=== PATIENT | female | born 1945 | race Caucasian/White ===

== ENCOUNTER 2016-08-21 09:15 | Emergency (ER) | payer OTHER ==
[~2016-08-21] VITALS: Ht 165.1 cm; Wt 72.0 kg
[~2016-08-21 09:15] MED LIST: NRV/10 PO; VNTHFA/IN INH
[2016-08-21 09:18] VITALS: TEMP 36.5; Ht 165.1 cm; Wt 72.0 kg
[2016-08-21 10:19] LABS: BASO % 0.7 %; BASO ABS # 0.04 K/uL (0-0.2); COMPLETE YES; EOS % 1.6 %; HEMATOCRIT 46.9 % (37-47); IG% 0.3 %; LYMPH % 11.2 %; LYMPH ABS # 0.65 K/uL (1.2-3.4); MEAN CELL VOLUME 98.7 fL (80-100); MEAN CORPUSCULAR HEMOGLOBIN 34.5 pg (25-34); MEAN PLATELET VOLUME 9.2 fL (7.4-10.4); MONO % 10.7 %; NEUT % 75.5 %; PLATELET COUNT 176 K/uL (130-400); RED BLOOD COUNT 4.75 M/uL (4.2-5.4); WHITE BLOOD COUNT 5.79 K/uL (4.8-10.8)
[2016-08-21 10:38] LABS: CALCIUM 8.6 mg/dl (8.5-10.1); CREATININE 0.59 mg/dl (0.60-1.20)
--- NOTE | 2016-08-21 10:46 | DIAGNOSTIC IMAGING REPORT ---
RIGHT KNEE 3 VIEWS HISTORY: right knee pain Right COMPARISON: None. FINDINGS: There is no fracture or dislocation. The bones are osteopenic. Moderate cartilage space narrowing within the medial compartment of the patellofemoral joint and mild cartilage space narrowing within the medial compartment of the femorotibial joint. Suspect faint chondrocalcinosis. Small to moderate knee effusion. Soft tissue thickening at the quadriceps tendon. No radiopaque foreign bodies. IMPRESSION: 1. No fracture or dislocation within the right knee. 2. Small to moderate knee effusion. 3. Chondrocalcinosis and degenerative changes as described above. 4. Soft tissue thickening at the quadriceps tendon. This could be due to a quadriceps tendon injury/tendinopathy. Electronically signed by: Segundo De Luna M.D. 08/21/2016 10:45 AM Dictated Date/Time: 08/21/2016 10:42 AM
[2016-08-21] MEDS ORDERED: OXYC1TAB3 PO (11:27)
[2016-08-21 11:29] VITALS: BP 141/100; PULSE 82; O2SAT 98
--- NOTE | 2016-08-21 16:23 | EMERGENCY ROOM VISIT NOTE ---
History Report prepared by Malissa: Michael Marie Under the Supervision of: Dr. Dao Chau D.O. First contact with patient: 09:23 Chief Complaint: SWELLING TO EXTREMITY Stated Complaint: SWELLING TO EXTREMETIES History of Present Illness The patient is a 71 year old female who presents to the Emergency Room with complaints of worsening joint swelling over the past two months. The patient states that she has been having swelling in her extremities, though it has gotten much worse recently. The patient states that the swelling and pain are in her hands, shoulders, knees, hips, and fingers. The patient additionally states that the right knee is erythematous. She states that she has not seen any rheumatologists, and she has not taken any medications for the pain or swelling. The patient states that she has an appointment with a specialist in October. She states that she has had her hip replaced, ruptured discs, and multiple fractures in the past. The patient states that nothing makes the pain better, and she currently lives alone. Pt denies headache, change in vision, fevers, chest pain, shortness of breath, nausea, vomiting, diarrhea, and pain with urination Source of History: patient Onset: two months ago Position: other (extremities) Quality: other (swelling) Timing: worsening Note: Associated symptoms: Joint pain Review of Systems See HPI for pertinent positives & negatives. A total of 10 systems reviewed and were otherwise negative. Past Medical & Surgical Medical Problems: (1) Hypertension Family History Cancer Diabetes mellitus Social History Smoking Status: Never Smoker Marital Status: single, Housing Status: lives alone Occupation Status: retired Current/Historical Medications Scheduled PRN Oxycodone Immediate Rel Tab (Roxicodone Ir), 5 MG PO Q6H PRN for Pain Allergies Coded Allergies: Ibuprofen (Verified Allergy, Unknown, HIVES (TOLERATES OTHER NSAIDS), ) CAN TAKE ALEVE Physical Exam Vital Signs Date Time Temp Pulse Resp B/P Pulse Ox O2 Delivery O2 Flow Rate FiO2 08/21/16 11:29 82 16 141/100 98 Room Air 08/21/16 09:18 36.5 56 20 152/88 92 Room Air Physical Exam GENERAL: Sitting up in bed no acute distress, non-toxic EYE EXAM: normal conjunctiva OROPHARYNX: no exudate, no erythema, lips, buccal mucosa, and tongue normal and mucous membranes are moist NECK: supple, no nuchal rigidity, no adenopathy, non-tender LUNGS: Clear to auscultation. Normal chest wall mechanics HEART: no murmurs, S1 normal and S2 normal ABDOMEN: abdomen soft, non-tender, normo-active bowel sounds, no masses, no rebound or guarding. BACK: Back is symmetrical on inspection and there is no deformity, no midline tenderness, no CVA tenderness. SKIN: no rashes and no bruising UPPER EXTREMITIES: Minimal pain with range of motion or wrist. Radial pulses are equal 2/4 bilaterally. Gross sensation intact. No weakness, no erythema of the joints or overlying cellulitis. LOWER EXTREMITIES: Full active and passive range of motion. Minimal tenderness in bilateral knees. Right slightly larger than left without erythema. Skin intact. NEURO EXAM: Normal sensorium, cranial nerves II-XII grossly intact, normal speech, no gross weakness of arms, no gross weakness of legs. Gross sensation intact. Medical Decision & Procedures ER Provider Diagnostic Interpretation: Xray results per the radiologist and my interpretation. RIGHT KNEE 3 VIEWS HISTORY: right knee pain Right COMPARISON: None. FINDINGS: There is no fracture or dislocation. The bones are osteopenic. Moderate cartilage space narrowing within the medial compartment of the patellofemoral joint and mild cartilage space narrowing within the medial compartment of the femorotibial joint. Suspect faint chondrocalcinosis. Small to moderate knee effusion. Soft tissue thickening at the quadriceps tendon. No radiopaque foreign bodies. IMPRESSION: 1. No fracture or dislocation within the right knee. 2. Small to moderate knee effusion. 3. Chondrocalcinosis and degenerative changes as described above. 4. Soft tissue thickening at the quadriceps tendon. This could be due to a quadriceps tendon injury/tendinopathy. Electronically signed by: Segundo De Luna M.D. 08/21/2016 10:45 AM Dictated Date/Time: 08/21/2016 10:42 AM Laboratory Results 08/21/16 10:00 Red Blood Count 4.75, Mean Corpuscular Volume 98.7, Mean Corpuscular Hemoglobin 34.5, Mean Corpuscular Hemoglobin Concent 35.0, Mean Platelet Volume 9.2, Neutrophils (%) (Auto) 75.5, Lymphocytes (%) (Auto) 11.2, Monocytes (%) (Auto) 10.7, Eosinophils (%) (Auto) 1.6, Basophils (%) (Auto) 0.7, Neutrophils # (Auto ) 4.37, Lymphocytes # (Auto) 0.65, Monocytes # (Auto) 0.62, Eosinophils # (Auto ) 0.09, Basophils # (Auto) 0.04 08/21/16 10:00 Test 08/21/16 10:00 White Blood Count 5.79 K/uL (4.8-10.8) Red Blood Count 4.75 M/uL (4.2-5.4) Hemoglobin 16.4 g/dL (12.0-16.0) Hematocrit 46.9 % (37-47) Mean Corpuscular Volume 98.7 fL (80-100) Mean Corpuscular Hemoglobin 34.5 pg (25-34) Mean Corpuscular Hemoglobin Concent 35.0 g/dl (32-36) Platelet Count 176 K/uL (130-400) Mean Platelet Volume 9.2 fL (7.4-10.4) Neutrophils (%) (Auto) 75.5 % Lymphocytes (%) (Auto) 11.2 % Monocytes (%) (Auto) 10.7 % Eosinophils (%) (Auto) 1.6 % Basophils (%) (Auto) 0.7 % Neutrophils # (Auto) 4.37 K/uL (1.4-6.5) Lymphocytes # (Auto) 0.65 K/uL (1.2-3.4) Monocytes # (Auto) 0.62 K/uL (0.11-0.59) Eosinophils # (Auto) 0.09 K/uL (0-0.5) Basophils # (Auto) 0.04 K/uL (0-0.2) RDW Standard Deviation 46.5 fL (36.4-46.3) RDW Coefficient of Variation 12.9 % (11.5-14.5) Immature Granulocyte % (Auto) 0.3 % Immature Granulocyte # (Auto) 0.02 K/uL (0.00-0.02) Anion Gap 10.0 mmol/L (3-11) Est Creatinine Clear Calc Drug Dose 84.5 ml/min Estimated GFR () 105.4 Estimated GFR (Non- 90.9 BUN/Creatinine Ratio 18.0 (10-20) Calcium Level 8.6 mg/dl (8.5-10.1) Laboratory results per my review. ED Course ED COURSE: Vital signs were reviewed and showed bradycardia The patients medical record was reviewed The above diagnostic studies were performed and reviewed. ED treatments and interventions as stated above. 0933: The patient was evaluated in room A12. A complete history and physical examination was performed. 1018: I discussed the patient's case with care management. They contacted Dr. Olmos, Rheumatology, and they are trying to move the patient's appointment up. 1135: Upon reevaluation, the patient is resting comfortably.I discussed my findings with the patient and She understands and agrees with the treatment plan. Based on the patients age, coexisting illnesses, exam and lab findings the decision to treat as an outpatient was made. The patient remained stable while under my care. The patient appeared well at the time of discharge. Medical Decision Differential diagnosis: Etiologies such as fracture, dislocation, neurovascular compromise, compartment syndrome, soft tissue injury, as well as others were entertained. Patient is a 71-year-old female who presents to the ER with diffuse arthralgias. This is been present for the past year and worsening over the past several months. She has followed up with her primary care doctor who gave her referral to rheumatology. On my exam there appears to be no infected joints. Labs show an unremarkable CBC and BMP. There is no septic joint. Vitals are stable. Patient was updated bedside. X-rays of her right knee were unremarkable as this was most painful knee. Patient was updated and she was discharged to follow-up with her outside sales inspector. Care management did discuss with her bedside and attempted to move her appointment up but they were not successful. Discussed with Pt concerning signs and symptoms to watch out for. Pt was instructed to follow up with their PCP and discussed with the patient their option to return to the ED at anytime for persistent or worsening symptoms. The appropriate anticipatory guidance and out-patient management, including indications for return to the emergency department, were explained at length to the patient and understood. [place] Drug Monitoring Program Search Results: patient reviewed within database, no issues identified Impression Primary Impression: Arthralgia Scribe Attestation The scribe's documentation has been prepared under my direction and personally reviewed by me in its entirety. I confirm that the note above accurately reflects all work, treatment, procedures, and medical decision making performed by me. Departure Information Dispostion Home / Self-Care Prescriptions Oxycodone Immediate Rel Tab (ROXICODONE IR) 5 Mg Tab 5 MG PO Q6H Y for Pain, #14 TAB Prov: Dao Chau, DO 08/21/16 Referrals No Doctor, Assigned (PCP) Forms HOME CARE DOCUMENTATION FORM, IMPORTANT VISIT INFORMATION, WORK / SCHOOL INSTRUCTIONS Patient Instructions ED Joint Pain, [facility] Additional Instructions Please follow up with your primary care doctor with in the next 24 hours. Any worsening of your symptoms, please return to the ED immediately. This includes fevers greater than 100.4, worsening pain, passing out, redness of the joint, inability to walk, or any other concerning signs or symptoms from your standpoint. You were given medications during this visit that will inhibit your ability to drive, operate machinery and work. Please do NOT drive, operate machinery or work for the next 12hrs. You were also given a prescription for a narcotic/oxy ir. While taking this medication you should also not drive, operate machinery and or work. Problem Qualifiers Primary Impression: Arthralgia Joint pain location: unspecified Qualified Codes: M25.50 - Pain in unspecified joint
== END 2016-08-21 12:00 | disposition home or self-care (01) ==
LOC: C.EDB 09:16 → C.EDA 12:00
DX: M25.50 Pain in unspecified joint (principal); I10 Essential (primary) hypertension; M25.461 Effusion, right knee; M17.11 Unilateral primary osteoarthritis, right knee; M79.9 Soft tissue disorder, unspecified; Z96.649 Presence of unspecified artificial hip joint; Z83.3 Family history of diabetes mellitus

== ENCOUNTER → 2017-08-22 | Outpatient (CLI) | payer OTHER ==
[2017-08-22 17:02] LABS: BLOOD UREA NITROGEN 3 mg/dl (7-18); CALCIUM 8.7 mg/dl (8.5-10.1); CARBON DIOXIDE 24 mmol/L (21-32); CREATININE 0.54 mg/dl (0.60-1.20); GLUCOSE 96 mg/dl (70-99); POTASSIUM 3.6 mmol/L (3.5-5.1); SODIUM 139 mmol/L (136-145)
[2017-08-24 15:30] LABS: ANA SCREEN TC 249X POSITIVE (NEGATIVE)
== END | disposition home or self-care (01) ==
LOC: C.LABPBG 12:25
PROVIDERS: ATTEND Physician Assistant
DX: M25.50 Pain in unspecified joint (principal)

== ENCOUNTER → 2017-09-06 | Outpatient (CLI) | payer OTHER ==
[2017-09-06 17:22] LABS: BASO % 0.5 %; BASO ABS # 0.03 K/uL (0-0.2); EOS % 1.1 %; EOS ABS # 0.06 K/uL (0-0.5); HEMATOCRIT 45.4 % (37-47); HEMOGLOBIN 15.5 g/dL (12.0-16.0); IG# 0.01 K/uL (0.00-0.02); LYMPH % 13.5 %; LYMPH ABS # 0.76 K/uL (1.2-3.4); MEAN CELL VOLUME 103.7 fL (80-100); MEAN CORPUSCULAR HEMOGLOBIN 35.4 pg (25-34); MEAN CORPUSCULAR HGB CONC 34.1 g/dl (32-36); MONO % 11.2 %; MONO ABS # 0.63 K/uL (0.11-0.59); NEUT % 73.5 %; NEUT ABS # 4.13 K/uL (1.4-6.5); PLATELET COUNT 143 K/uL (130-400); RED CELL DISTRIBUTION WIDTH CV 13.9 % (11.5-14.5); RED CELL DISTRIBUTION WIDTH SD 52.9 fL (36.4-46.3); WHITE BLOOD COUNT 5.62 K/uL (4.8-10.8)
[2017-09-06 17:43] LABS: ALBUMIN 2.6 gm/dl (3.4-5.0); ALT/SGPT 25 U/L (12-78); AST/SGOT 82 U/L (15-37); CREATININE 0.64 mg/dl (0.60-1.20)
[2017-09-06 17:45] LABS: ALKALINE PHOSPHATASE 102 U/L (45-117); TOTAL PROTEIN 7.2 gm/dl (6.4-8.2)
== END | disposition home or self-care (01) ==
LOC: C.LABPBG 15:40
PROVIDERS: ATTEND Internal Medicine Rheumatology
DX: M05.749 Rheumatoid arthritis with rheumatoid factor of unspecified hand without organ or systems involvement (principal); M15.9 Polyosteoarthritis, unspecified; R76.8 Other specified abnormal immunological findings in serum

== ENCOUNTER 2020-04-18 10:34 | Inpatient (IN) ==
[2020-04-18 12:42] LABS: Basophils # (auto) 0.02 K/uL (0-0.2); Basophils % (auto) 0.4 %; Eosinophils # (auto) 0.04 K/uL (0-0.5); Eosinophils % (auto) 0.8 %; Hematocrit (blood only) 30.2 % (37-47); Hemoglobin 10.2 g/dL (12.0-16.0); Lymphocytes # (auto) 0.87 K/uL (1.2-3.4); Lymphocytes % (auto) 16.5 %; Mean Corpuscular Hemoglobin 33.3 pg (25-34); Mean Corpuscular Hgb Conc 33.8 g/dL (32-36); Mean Corpuscular Volume 98.7 fL (80-100); Mean Platelet Volume 9.4 fL (7.4-10.4); Monocytes # (auto) 0.54 K/uL (0.11-0.59); Monocytes % (auto) 10.2 %; Neutrophils % (auto) 72.1 %; Platelet Count 155 K/uL (130-400); RDW Standard Deviation 49.6 fL (36.4-46.3); Red Blood Count 3.06 M/uL (4.2-5.4); White Blood Count 5.27 K/uL (4.8-10.8)
--- NOTE | 2020-04-18 12:56 | XRay Report ---
SINGLE VIEW CHEST CLINICAL HISTORY: Change in mental status. Rectal bleeding. FINDINGS: An AP, portable, upright chest radiograph is compared to study dated 01/08/2019. The examina tion is significantly degraded by portable technique and patient rotation. The patient's head obscure s the apices. The cardiomediastinal silhouette is unremarkable. Chronic interstitial thickening is si milar to previous. There is bibasilar scarring/atelectasis. No airspace consolidation or large pleura l effusion is identified. No pneumothorax is seen. The skeletal structures are osteopenic. There are healed left-sided rib fractures. Degenerative change is noted in the shoulders and thoracic spine. Fu la hardware is partially visualized in the upper lumbar spine. IMPRESSION: No active disease in the chest. ACT 112: Negative or not required by law. Electronically signed by: Pablo Pa M.D. 04/18/2020 12:55 PM
[2020-04-18 13:10] LABS: Alanine Aminotransferase 16 U/L (12-78); Albumin Level 2.8 gm/dl (3.4-5.0); Aspartate Aminotransferase 38 U/L (15-37); BUN Creatinine Ratio 25.7 (10-20); Blood Urea Nitrogen 20 mg/dl (7-18); Calcium 8.8 mg/dl (8.5-10.1); Carbon Dioxide 31 mmol/L (21-32); Chloride 109 mmol/L (98-107); Creatinine Clr Calc Pharmacy 49.3 ml/min; Est GFR (African American) 83.7; Est GFR (Non-African American) 72.2; Glucose 110 mg/dl (70-99); Magnesium 1.9 mg/dl (1.8-2.4); Sodium 144 mmol/L (136-145)
[2020-04-18 13:23] LABS: Albumin Globulin Ratio 0.7 (0.9-2); Alkaline Phosphatase 55 U/L (45-117); Total Protein 6.8 gm/dl (6.4-8.2); Troponin I < 0.015 ng/ml (0-0.045)
[2020-04-18 13:29] LABS: Partial Thromboplastin Ratio 2.7; Prothrombin Time > 90.0 Seconds (9.0-12.0)
[2020-04-18 13:31] LABS: INR > 9.7 (0.9-1.1); Partial Thromboplastin Time 75.7 Seconds (21.0-31.0)
[2020-04-18] MEDS ORDERED: IOVERSOL 100ml IV ONE (13:55)
[2020-04-18] MEDS ORDERED: PHYTONADIONE 10 MG in SODIUM CHLORIDE 0.9% 50 ML IV ONE (13:57)
[2020-04-18] MEDS ORDERED: SODIUM CHLORIDE 0.9% 1000ML 1,000 ML IV SCH (14:00)
--- NOTE | 2020-04-18 14:05 | CT Scan Report ---
CT SCAN OF THE BRAIN WITHOUT IV CONTRAST CLINICAL HISTORY: Change in mental status. COMPARISON STUDY: CT of the brain dated 10/07/2019. TECHNIQUE: Unenhanced axial CT scan of the brain is performed from the vertex to the skull base. A do se lowering technique was utilized adhering to the principles of ALARA. The patient was scanned twice due to motion artifact. FINDINGS: Brain parenchyma: There are age-related involutional changes noting moderate subcortical and periven tricular microangiopathic change. There is no hemorrhage, mass effect, or evidence of acute territori al ischemia by CT criteria. Caballero-white matter differentiation is preserved. No extra-axial fluid louise ection is seen. Ventricles, sulci, cisterns: Prominent secondary to involutional change. Intracranial vasculature: There is atherosclerotic calcification of the cavernous carotid arteries. Calvarium: Unremarkable. Sinuses and mastoids: The visualized paranasal sinuses are clear. There are bilateral mastoid effusio ns, right larger than left. Orbits: The bony orbits are grossly intact. There are bilateral ocular lens implants. IMPRESSION: There is no hemorrhage, mass effect, or evidence of acute territorial ischemia by CT esmer roberto. ACT 112: Negative or not required by law. Electronically signed by: Pablo Pa M.D. 04/18/2020 2:04 PM
--- NOTE | 2020-04-18 14:17 | CT Scan Report ---
CT SCAN OF THE ABDOMEN AND PELVIS WITH IV CONTRAST CLINICAL HISTORY: Hematochezia. COMPARISON STUDY: Pelvic CT dated 10/29/2018. TECHNIQUE: Following the IV administration of 94 cc of Optiray 320, CT scan of the abdomen and pelvi s is performed from the lung bases to the proximal femora. Images are reviewed in the axial, sagittal , and coronal planes. IV contrast was administered without complication. A dose lowering technique wa s utilized adhering to the principles of ALARA. The examination is degraded by streak artifact from t he arms, as well as metallic streak artifact from extensive lumbar spinal fusion hardware and bilater al hip arthroplasties. There is also motion artifact. CT DOSE: 1419.61 mGy.cm FINDINGS: Lung bases: The heart is normal in size and without pericardial effusion. A small fat-containing Yari dalek hernia is seen in the right lung base. There is bibasilar scarring/atelectasis. No airspace con solidation or pleural effusion is identified. There are esophageal varices. Liver: The contrast-enhanced liver is normal in size, contour, and attenuation. There is no intrahepa tic biliary ductal dilatation. The hepatic veins and portal veins are patent. Gallbladder: There are numerous calcified gallstones with no CT evidence of acute cholecystitis. Spleen: The spleen is enlarged, measuring 13.6 cm in length. Pancreas: Unremarkable. Adrenal glands: Unremarkable. Kidneys: The contrast enhanced kidneys demonstrate cortical atrophy and are without hydronephrosis. T he kidneys enhance symmetrically. A circumaortic left renal vein is incidentally noted. There is evid ence of a left renal shunt, as the left renal vein and the esophageal varices are contiguous. The spl enic vein is patent. Abdominal vasculature: The abdominal aorta is normal in course and caliber noting mild to moderate at herosclerotic calcification. Bowel: There is moderate colonic diverticulosis without CT evidence of acute diverticulitis. No bowel obstruction is seen. The appendix is not identified. There is extravasation of IV contrast into the lower rectum as seen on image #[id number]. Peritoneum: There is no intraperitoneal free air or abdominal ascites. Lymphadenopathy: None. Pelvic viscera: Evaluation of the pelvis is significantly degraded by streak artifact from bilateral hip arthroplasties. The bladder is grossly unremarkable. The uterus is surgically absent. No adnexal lesion is seen. There is asymmetric atrophy of the right pelvic musculature as compared to left. Skeletal structures: The skeletal structures are heterogeneously osteopenic. There is moderate lumbos acral spondylosis, with postoperative change from L3-L5 spinal fusion. No lytic or blastic lesions ar e seen. Bilateral hip arthroplasties are in place. IMPRESSION: 1. Significantly streak and motion compromised examination. 2. There is evidence of IV contrast extravasation into the lower rectum. Correlation with direct visu alization is recommended. 3. There are large esophageal varices with evidence of a left renal venous shunt. 4. Mild splenomegaly. 5. There is no CT evidence of hepatic cirrhosis. 6. Cholelithiasis without CT evidence of acute cholecystitis. 7. Colonic diverticulosis without CT evidence of acute diverticulitis. 8. Additional findings as above. ACT 112: Negative or not required by law. Electronically signed by: Pablo Pa M.D. 04/18/2020 2:16 PM
[2020-04-18] MEDS ORDERED: PROTHROMBIN COMP CONC- KCENTRA 3,000 UNITS in SYRINGE 0 ML IV SCH (14:27)
[2020-04-18] MEDS ORDERED: OCTREOTIDE ACETATE 500 MCG in 0.9 % SODIUM CHLORIDE 100 ML IV SCH ×2 (14:30→14:45)
[2020-04-18] MEDS ORDERED: OCTREOTIDE BOLUS FROM BAG IV ONE (14:30)
[2020-04-18] MEDS ORDERED: MULTI-VITAMIN INFUSION 10 ML, THIAMINE HCL 100 MG, FOLIC ACID 1 MG in SODIUM CHLORIDE 0... IV ONE (14:41)
[2020-04-18] MEDS ORDERED: PANTOprazole 80 MG in DEXTROSE 5% 100 ML IV ONE (14:45)
[2020-04-18] MEDS ORDERED: OCTREOTIDE ACETATE IV SCH (14:45)
[2020-04-18] MEDS ORDERED: SODIUM CHLORIDE 0.9% IV SCH (14:45)
--- NOTE | 2020-04-18 16:09 | History & Physical Report ---
Date of Service April 18, 2020 Assessment & Plan (1) Acute GI bleeding: Bright red blood with clots suggestive of lower GI bleed for 2 days in setting of supratherpeutic INR Type and screen performed Blood consent signed Transfuse overnight if Hgb < 8 Suspect initial drop a dilutional impact from IV fluids. NPO except sips, chips and meds (2) Rectal bleeding: as above (3) Supratherapeutic INR: Secondary to unchecked warfarin use - unclear of indication of this and HIM request for discharge summary from [place]. Vitamin K 10 mg IV PTINR with AM labs (4) Esophageal varices: No hematemesis. Bleeding has all been lower GI with bright red blood and clots. Continue on IV pantoprazole but can discontinue octreotide and no need for antibiotic prophylaxis. Avoid acutely starting BB in setting of acute GI bleed but likely will need on discharge. Consult GI (5) Ambulatory dysfunction: ?secondary to Wernicke's although suspect low likelihood of this. IV thiamine 200mg TID. (6) History of alcohol use disorder: Given significant acute on chronic decline with short term memory loss, bilateral LE weakness and ambulatory dysfunction will treat as Wernicke's with IV thiamine. Last known alcoholic drink in September. Explains her esophageal varices and likely underlying liver cirrhosis (7) Combative behavior: Monitor for delirium Haldol PRN if at risk to self or others - low dose due to prolonged QT. Will likely need placement. (8) Hepatic encephalopathy: Possible cause of acute decline in mentation Will avoid lactulose in setting of unknown stability of GI bleed as above but s hould be started once stable from a GI bleed point of view. (9) Short-term memory loss: Treatment for Wernicke's and hepatic encephalopathy as above but likely has underlying dementia related to chronic alcohol use. 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 History is taken from her daughter at bedside as patient unable to answer any questions and is not orientated x3 who has only recently become involved in her care over the last month. She reports two days of bright red blood and passing clots in stool. The patient has also had progressive decline with ambulatory dysfunction and combative behaviour since care has been taken over by her daughter at the end of last month. She reports acute on chronic decline since the patient was diagnosed with a "blood clot on the brain" in [facility] back in September. She was seen at [facility] for a headache twice in September but discharged from the ER both times. Her daughter reports she went to [facility] after these visits and subsequently life-flighted to [place] and then [place] for a blood clot on her brain for which she was treated with warfarin. Prior to this the patient had been living by herself in [place], [place] and was a chronic alcoholic. After likely withdrawing during her hospitalizations she was discharged to [facility] for rehabilitation. Given treatment with warfarin I suspect she had a stroke with possible atrial fibrillation although her daughter denies any knowledge of this. After rehabilitation she went to live with her sister in [place] but the patient was combative and they would argue all the time therefore her daughter from [place] picked her up and initially lived with her but quickly came back to [place] to live with her [facility]. Unfortunately she has continued to decline. She is yet to follow up with a PCP in [place] since moving back to at the end of February. She has actually had a PCP appointment this coming week as follow up with a repeat INR. Last INR was at the end of February but known In the ER Hgb 10.2 from prior baseline 14.9 ([address] concerning for esophageal varices but no hematemesis from history. Allergies Allergy/AdvReac Type Severity Reaction Status Date / Time ibuprofen Allergy Intermediate HIVES Verified 04/18/20 11:47 (TOLERATES OTHER NSAIDS) Home Medications Medication Instructions Recorded Confirmed Type escitalopram oxalate 5 mg PO QAM 04/18/20 04/18/20 History ferrous sulfate 27 mg PO QAM 04/18/20 04/18/20 History furosemide 20 mg PO BID PRN 04/18/20 04/18/20 History leflunomide 10 mg PO QAM 04/18/20 04/18/20 History multivitamin 1 tab PO QAM 04/18/20 04/18/20 History potassium chloride [Klor-Con M10] 20 meq PO BID 04/18/20 04/18/20 History warfarin 6 mg PO QAM 04/18/20 04/18/20 History Past Med/Surg History Medical History Generalized osteoarthritis of hand GERD without esophagitis History of alcohol use disorder Hypertension Osteoporosis 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 Vitamin D deficiency Surgical History H/O bilateral hip replacements History of back surgery Status post amputation of toe Status post open reduction and internal fixation (ORIF) of fracture (01/2018) L distal radius and ulna Family History Father Alzheimer disease Mother Diabetes Sister Lung cancer Social History Smoking Status: Unknown if ever smoked Hx Alcohol Use: Yes Preferred Language: Persian Communication Ability: Confusion 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 Beliefs That Will Affect Care: None marital status: / Current Living Situation: Alone current occupational status: retired Other Information That Helps Us Care for You: No (N/A) Feels Safe at Home: Declines to Answer Assistive Devices: None Review of Systems Review of Systems: All systems reviewed & are unremarkable except as noted in HPI & below Physical Exam Constitutional: well developed and + frail appearing; + not well nourished and no acute distress Eyes: + anicteric sclerae; normal pupil size ENMT: Ears: no external ear abnormality Nose: no external nose abnormality Mouth: + dry oral mucous membranes Neck: trachea midline Respiratory: normal respiratory effort, lungs clear to auscultation Cardiovascular: RRR, no murmur, no edema Gastrointestinal (Abdomen): Inspection/Auscultation: abdomen normal to inspection and normal bowel sounds Percussion/Palpation: abdomen soft; abdomen nontender, no guarding and abdomen not rigid Musculoskeletal: no cyanosis or clubbing, extremities motor strength 5/5 Skin: no rashes, warm and dry Neurologic: moves all extremities, awake and + confused; no focal motor deficits (no one sided deficit, limited exam due to patient compliance) Psychiatric: Orientation: alert; + not oriented x 3 Eye Contact: + fair eye contact Genitourinary: no CVA tenderness Results & Data Results & Data ([facility]) Vital Signs (Past 12 Hours) Vital Signs Temp Pulse Resp BP Pulse Ox 04/18/20 15:31 76 14 153/51 H 98 04/18/20 15:00 80 15 132/67 100 04/18/20 14:30 79 14 133/73 99 04/18/20 14:07 90 18 136/84 100 04/18/20 13:30 71 15 133/67 99 04/18/20 13:00 82 14 139/70 97 04/18/20 12:00 77 17 141/75 H 97 04/18/20 11:30 83 17 144/74 H 98 04/18/20 11:11 79 14 97 04/18/20 11:04 85 16 125/68 97 04/18/20 10:50 36.8 C 79 16 150/[address] SCAN OF THE BRAIN WITHOUT IV CONTRAST IMPRESSION: There is no hemorrhage, mass effect, or evidence of acute territorial ischemia by CT criteria. SINGLE VIEW CHEST IMPRESSION: No active disease in the chest. CT SCAN OF THE ABDOMEN AND PELVIS WITH IV CONTRAST IMPRESSION: 1. Significantly streak and motion compromised examination. 2. There is evidence of IV contrast extravasation into the lower rectum. Correlation with direct visualization is recommended. 3. There are large esophageal varices with evidence of a left renal venous shunt. 4. Mild splenomegaly. 5. There is no CT evidence of hepatic cirrhosis. 6. Cholelithiasis without CT evidence of acute cholecystitis. 7. Colonic diverticulosis without CT evidence of acute diverticulitis. 8. Additional findings as above. Medications Administered ER medications given: Vitamin K 10 g IV Octreotide IV bolus and drip Pantoprazole IV bolus and drip ECG Indication: other Rate (beats per minute): 83 Rhythm: normal sinus Findings: + prolonged QT (521 ms); no acute ischemic change Comparison ECG Date: from (August 28, 2014) Change: the following changes noted (QT is prolonged) Code Status & VTE Plan Code Status DNR/DNI VTE Prophylaxis Plan VTE Prophylaxis will be ordered: No Reason for no VTE drug order: Contraindicated and Treatment not indicated PG Care Time/CCT Total # of Minutes Spent Total Time Spent with Patient: Total time spent is greater than 50% in coordination of care (as documented) at patient's floor/unit and/or counseling patient: Coding Level of Care Code 17032 Initial Inpt Care Lvl 3 Diagnoses Acute GI bleeding K92.2 Rectal bleeding K62.5 Supratherapeutic INR R79.1 Esophageal varices I85.00 Ambulatory dysfunction R26.2 History of alcohol use disorder Z87.898 Combative behavior R46.89 Hepatic encephalopathy K72.90 Short-term memory loss R41.3 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
[2020-04-18] MEDS: PANTOprazole 40 MG in DEXTROSE 5% 100 ML IV SCH ×2 (17:25→21:30)
[2020-04-18] MEDS ORDERED: THIAMINE HCL 500 MG in SODIUM CHLORIDE 0.9% 50 ML IV STA (18:02)
[2020-04-18 18:12] LABS: Hemoglobin 8.8 g/dL (12.0-16.0)
--- NOTE | 2020-04-18 18:24 | Electrocardiogram Report ---
Test Reason : Blood Pressure : / mmHG Vent. Rate : 083 BPM Atrial Rate : 083 BPM P-R Int : 170 ms QRS Dur : 078 ms QT Int : 444 ms P-R-T Axes : 000 -17 031 degrees QTc Int : 521 ms Poor data quality, interpretation may be adversely affected Normal sinus rhythm Low voltage QRS Borderline ECG When compared with ECG of 28-AUG-2014 21:06, QT has lengthened Confirmed by Dontae Schilling ([id number]) on 04/18/2020 6:23:59 PM Referred By: REFERRED SELF Confirmed By:Dontae Schilling
--- NOTE | 2020-04-18 19:55 | Emergency Department Note ---
History of Present Illness General Chief complaint: Rectal Bleed Stated complaint: SEVERE STOMACH,HEADACHE,SEVERE RECTAL BLEEDING Time Seen by Provider: 04/18/20 10:57 History of Present Illness Maximum Pain Intensity: 3 This is a 75-year-old female that presents to the emergency department via private vehicle accompanied by daughter with complaints of "severe stomach pain, headache, severe rectal bleeding". The patient is here with her daughter. The patient is nonverbal at this time. The daughter notes that the patient has had a steady decline in physical and mental status since this past September. She notes that she was able to identify people about a week ago but unfortunately now as of today does not know even her immediate family. The daughter at bedside notes the patient has been complaining of a headache as well as abdominal pain. The daughter brings the mother here now over concern of blood red blood per rectum. The patient has been passing large amounts of blood from the rectum per daughter. The daughter notes that the patient was discharged from [facility] this past December and then went to live with her sister in [place] but as of 1 month ago was sent back home as things were not going well [place]. Patient has been now living with granddaughter here in [facility]. The daughter of the patient also notes that she has had a dry cough, and also seems to be hallucinating noting that she is seeing bugs and spiders. There has been no reported vomiting. There has been decreased oral intake. Home Medications Medication Instructions Recorded Confirmed Type escitalopram oxalate 5 mg PO QAM 04/18/20 04/18/20 History ferrous sulfate 27 mg PO QAM 04/18/20 04/18/20 History furosemide 20 mg PO BID PRN 04/18/20 04/18/20 History leflunomide 10 mg PO QAM 04/18/20 04/18/20 History multivitamin 1 tab PO QAM 04/18/20 04/18/20 History potassium chloride [Klor-Con M10] 20 meq PO BID 04/18/20 04/18/20 History warfarin 6 mg PO QAM 04/18/20 04/18/20 History Allergies Allergy/AdvReac Type Severity Reaction Status Date / Time ibuprofen Allergy Intermediate HIVES Verified 04/18/20 11:47 (TOLERATES OTHER NSAIDS) Past Med/Surg History Medical History (Updated 04/18/20 @ 19:55 by Ramiro Pringle PA-C) Generalized osteoarthritis of hand GERD without esophagitis Hypertension Osteoporosis 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 Vitamin D deficiency Surgical History H/O bilateral hip replacements History of back surgery Status post amputation of toe Status post open reduction and internal fixation (ORIF) of fracture (01/2018) L distal radius and ulna Family History Father Alzheimer disease Mother Diabetes Sister Lung cancer Social History Smoking Status: Never smoker Hx Alcohol Use: Yes Hx Substance Use: No Preferred Language: Luxembourgish marital status: / Current Living Situation: Alone current occupational status: retired Feels Safe at Home: Yes Review of Systems A total of 10 systems reviewed and were otherwise negative Physical Exam Vital Signs Vital Signs - 24 hr 04/18/20 10:50 04/18/20 11:04 04/18/20 11:11 Temperature 36.8 C Temperature Source Temporal Artery Scan Pulse Rate 79 85 79 Pulse Rate [Right Finger] Pulse Rate from SpO2 Sensor 82 Respiratory Rate 16 16 14 Respiratory Effort / Characteristics Non-Labored Respiratory Depth Normal Respiratory Pattern Regular Blood Pressure 150/98 H 125/68 Blood Pressure [Right Arm] Blood Pressure Mean 115 97 Blood Pressure Mean [Right Arm] Blood Pressure Position Sitting Pulse Oximetry 99 97 97 Oxygen Delivery Method Room Air Room Air Sepsis Recent Fever Within 48 Hours No Sepsis New/Unexplained Change in Mental Status No Sepsis Action Taken by Nursing No Action Required 04/18/20 11:30 04/18/20 12:00 04/18/20 12:29 Temperature Temperature Source Pulse Rate 83 77 Pulse Rate [Right Finger] Pulse Rate from SpO2 Sensor 81 77 Respiratory Rate 17 17 Respiratory Effort / Characteristics Respiratory Depth Respiratory Pattern Blood Pressure 144/74 H 141/75 H Blood Pressure [Right Arm] Blood Pressure Mean 106 99 Blood Pressure Mean [Right Arm] Blood Pressure Position Pulse Oximetry 98 97 Oxygen Delivery Method Room Air Room Air Sepsis Recent Fever Within 48 Hours Sepsis New/Unexplained Change in Mental Status Sepsis Action Taken by Nursing 04/18/20 13:00 04/18/20 13:30 04/18/20 14:07 Temperature Temperature Source Pulse Rate 82 71 90 Pulse Rate [Right Finger] Pulse Rate from SpO2 Sensor 82 72 87 Respiratory Rate 14 15 18 Respiratory Effort / Characteristics Respiratory Depth Respiratory Pattern Blood Pressure 139/70 133/67 136/84 Blood Pressure [Right Arm] Blood Pressure Mean 93 103 108 Blood Pressure Mean [Right Arm] Blood Pressure Position Pulse Oximetry 97 99 100 Oxygen Delivery Method Room Air Room Air Room Air Sepsis Recent Fever Within 48 Hours Sepsis New/Unexplained Change in Mental Status Sepsis Action Taken by Nursing 04/18/20 14:30 04/18/20 15:00 04/18/20 15:31 Temperature Temperature Source Pulse Rate 79 80 76 Pulse Rate [Right Finger] Pulse Rate from SpO2 Sensor 82 81 80 Respiratory Rate 14 15 14 Respiratory Effort / Characteristics Respiratory Depth Respiratory Pattern Blood Pressure 133/73 132/67 153/51 H Blood Pressure [Right Arm] Blood Pressure Mean 99 78 103 Blood Pressure Mean [Right Arm] Blood Pressure Position Pulse Oximetry 99 100 98 Oxygen Delivery Method Room Air Room Air Room Air Sepsis Recent Fever Within 48 Hours Sepsis New/Unexplained Change in Mental Status Sepsis Action Taken by Nursing 04/18/20 16:00 04/18/20 16:30 04/18/20 17:00 Temperature Temperature Source Pulse Rate 77 88 81 Pulse Rate [Right Finger] Pulse Rate from SpO2 Sensor 81 88 83 Respiratory Rate 16 18 17 Respiratory Effort / Characteristics Respiratory Depth Respiratory Pattern Blood Pressure 140/84 168/88 H 139/82 Blood Pressure [Right Arm] Blood Pressure Mean 108 119 112 Blood Pressure Mean [Right Arm] Blood Pressure Position Pulse Oximetry 100 95 99 Oxygen Delivery Method Room Air Sepsis Recent Fever Within 48 Hours Sepsis New/Unexplained Change in Mental Status Sepsis Action Taken by Nursing 04/18/20 17:30 04/18/20 18:00 04/18/20 18:30 Temperature Temperature Source Pulse Rate 79 83 79 Pulse Rate [Right Finger] Pulse Rate from SpO2 Sensor 79 82 79 Respiratory Rate 17 17 15 Respiratory Effort / Characteristics Respiratory Depth Respiratory Pattern Blood Pressure 136/65 127/69 123/65 Blood Pressure [Right Arm] Blood Pressure Mean 98 85 89 Blood Pressure Mean [Right Arm] Blood Pressure Position Pulse Oximetry 97 96 95 Oxygen Delivery Method Room Air Room Air Room Air Sepsis Recent Fever Within 48 Hours Sepsis New/Unexplained Change in Mental Status Sepsis Action Taken by Nursing 04/18/20 19:00 04/18/20 19:30 04/18/20 19:34 Temperature Temperature Source Pulse Rate 88 84 Pulse Rate [Right Finger] 80 Pulse Rate from SpO2 Sensor 87 83 Respiratory Rate 20 17 16 Respiratory Effort / Characteristics Respiratory Depth Respiratory Pattern Blood Pressure 120/66 119/69 Blood Pressure [Right Arm] 119/69 Blood Pressure Mean 74 89 Blood Pressure Mean [Right Arm] 85 Blood Pressure Position Pulse Oximetry 96 95 97 Oxygen Delivery Method Room Air Sepsis Recent Fever Within 48 Hours Sepsis New/Unexplained Change in Mental Status Sepsis Action Taken by Nursing VITAL SIGNS - Vital signs and nursing notes were reviewed. Stable and afebrile. GENERAL -75-year-old female appearing her stated age who is in no acute distress. The patient only communicates with slight grumbling noises and does not speak any words. She has her eyes closed. SKIN - Without rashes. No meningeal or petechial rash. HEAD - NC/AT. EYES -patient's eyes are closed at this time. EARS - No deformities of external structures noted on gross examination bilaterally. NOSE - Midline and without cyanosis. No epistaxis or purulent drainage noted. MOUTH/OROPHARYNX - Without perioral cyanosis. NECK - Neck with FROM. No nuchal rigidity. LUNGS - Chest wall symmetric without accessory muscle use, intercostals retractions, or central cyanosis. Normal vesicular breath sounds CTA B/L. No wheezes, rales, or rhonchi appreciated. CARDIAC - RRR with S1/S2. No murmur, rubs, or gallops appreciated. ABDOMEN - Abdominal contour normal without pulsations or visible masses. BS normoactive all four quadrants. No tenderness, palpable masses, hepatosplenomegaly, or ascites noted. EXTREMITIES - No clubbing or peripheral cyanosis. NEUROLOGIC -limited secondary to patient mental status. The patient does respond to verbal stimuli. Course Administered Medications Pantoprazole Sodium 40 mg/ (Dextrose) 100 mls @ 20 mls/hr IV Q5H DANIEL Stop: 05/18/20 14:59 Last Infusion: 04/18/20 19:01 Dose: 8 mg/hr, 20 mls/hr Documented by: [id number] Infusion: 04/18/20 18:40 Dose: 0 mg/hr, 0 mls/hr Documented by: [id number] Admin: 04/18/20 17:25 Dose: 8 mg/hr, 20 mls/hr Documented by: [id number] Octreotide Acetate 500 mcg/ (Sodium Chloride) 100.5 mls @ 10 mls/hr IV .Q10H3M [facility] Stop: 05/18/20 14:44 Last Admin: 04/18/20 16:20 Dose: 10 mls/hr Documented by: [id number] Discontinued Medications Phytonadione 10 mg/ Sodium (Chloride) 51 mls @ 102 mls/hr IV ONE ONE Stop: 04/18/20 14:26 Last Infusion: 04/18/20 15:20 Dose: 0 mls/hr Documented by: [id number] Infusion: 04/18/20 14:51 Dose: 102 mls/hr Documented by: [id number] Infusion: 04/18/20 14:34 Dose: 0 mls/hr Documented by: [id number] Admin: 04/18/20 14:33 Dose: 102 mls/hr Documented by: [id number] Sodium Chloride (Nss 1000ml) 1,000 mls @ 250 mls/hr IV .Q4H [facility] Stop: 04/18/20 17:59 Last Infusion: 04/18/20 18:44 Dose: 0 mls/hr Documented by: [id number] Admin: 04/18/20 14:31 Dose: 250 mls/hr Documented by: [id number] Prothrombin Complex Concent ( (Human) 3,000 units/ Syringe) 120 mls @ 10 mls/min IV TODAY@1427 [facility]; Protocol Stop: 04/18/20 16:00 Last Admin: 04/18/20 14:36 Dose: 10 mls/min Documented by: [id number] Pantoprazole Sodium 80 mg/ (Dextrose) 120 mls @ 480 mls/hr IV NOW ONE Stop: 04/18/20 14:59 Last Infusion: 04/18/20 15:52 Dose: 0 mls/hr Documented by: [id number] Admin: 04/18/20 15:37 Dose: 480 mls/hr Documented by: [id number] Multivitamins 10 ml/ Thiamine HCl 100 mg/ Folic Acid 1 mg/Sodium Chloride 1,011.2 mls @ 1,011.2 mls/hr IV .Q1H ONE Stop: 04/18/20 15:40 Last Infusion: 04/18/20 17:13 Dose: 0 mls/hr Documented by: [id number] Admin: 04/18/20 16:13 Dose: 1,011.2 mls/hr Documented by: [id number] Thiamine HCl 500 mg/ Sodium (Chloride) 55 mls @ 208 mls/hr IV NOW STA Stop: 04/18/20 18:17 Last Infusion: 04/18/20 18:58 Dose: 0 mls/hr Documented by: [id number] Admin: 04/18/20 18:42 Dose: 208 mls/hr Documented by: [id number] Ioversol (Ioversol 100ml) 94 ml IV ONCE ONE Stop: 04/18/20 13:56 Last Admin: 04/18/20 13:55 Dose: 94 ml Documented by: [id number] Octreotide Acetate (Octreotide Bolus From Bag) 50 mcg IV ONE ONE Stop: 04/18/20 14:31 Last Admin: 04/18/20 16:22 Dose: 50 mcg Documented by: [id number] Medical Decision Making Laboratory Data Result diagrams: 04/18/20 17:58 04/18/20 12:17 Lab Results 04/18/20 04/18/20 04/18/20 Range/Units 12:17 12:17 12:17 WBC 5.27 (4.8-10.8) K/uL RBC 3.06 L (4.2-5.4) M/uL Hgb 10.2 L (12.0-16.0) g/dL Hct 30.2 L (37-47) % MCV 98.7 (80-100) fL MCH 33.3 (25-34) pg MCHC 33.8 (32-36) g/dL RDW Std Deviation 49.6 H (36.4-46.3) fL RDW Coeff of Lolita 14.0 (11.5-14.5) % Plt Count 155 (130-400) K/uL MPV 9.4 (7.4-10.4) fL Immature Gran % (Auto) 0.0 % Neut % (Auto) 72.1 % Lymph % (Auto) 16.5 % Fisher % (Auto) 10.2 % Eos % (Auto) 0.8 % Baso % (Auto) 0.4 % Neut # (Auto) 3.80 (1.4-6.5) K/uL Lymph # (Auto) 0.87 L (1.2-3.4) K/uL Fisher # (Auto) 0.54 (0.11-0.59) K/uL Eos # (Auto) 0.04 (0-0.5) K/uL Baso # (Auto) 0.02 (0-0.2) K/uL Immature Gran # (Auto) 0.00 (0.00-0.02) K/uL PT Cancelled INR Cancelled APTT Cancelled PTT Ratio Cancelled Sodium (136-145) mmol/L Potassium (3.5-5.1) mmol/L Chloride (98-107) mmol/L Carbon Dioxide (21-32) mmol/L Anion Gap (3-11) BUN (7-18) mg/dl Creatinine (0.6-1.2) mg/dl Est Cr Clr Drug Dosing ml/min Est GFR ( Amer) Est GFR (Non-Af Amer) BUN/Creatinine Ratio (10-20) Glucose (70-99) mg/dl Lactate (0.4-2.0) mmol/L Calcium (8.5-10.1) mg/dl Magnesium (1.8-2.4) mg/dl Total Bilirubin (0.2-1) mg/dl AST (15-37) U/L ALT (12-78) U/L Alkaline Phosphatase (45-117) U/L Ammonia (11-32) umol/L Troponin I (0-0.045) ng/ml Total Protein (6.4-8.2) gm/dl Albumin (3.4-5.0) gm/dl Globulin (2.5-4.0) gm/dl Albumin/Globulin Ratio (0.9-2) Procalcitonin < 0.05 (0-0.5) ng/ml TSH (0.300-4.500) uIu/ml Specimen Hemolysis SARS-CoV-2 Ag (Rapid) (Negative) Blood Type Antibody Screen 04/18/20 04/18/20 04/18/20 Range/Units 12:17 12:38 12:38 WBC (4.8-10.8) K/uL RBC (4.2-5.4) M/uL Hgb (12.0-16.0) g/dL Hct (37-47) % MCV (80-100) fL MCH (25-34) pg MCHC (32-36) g/dL RDW Std Deviation (36.4-46.3) fL RDW Coeff of Lolita (11.5-14.5) % Plt Count (130-400) K/uL MPV (7.4-10.4) fL Immature Gran % (Auto) % Neut % (Auto) % Lymph % (Auto) % Fisher % (Auto) % Eos % (Auto) % Baso % (Auto) % Neut # (Auto) (1.4-6.5) K/uL Lymph # (Auto) (1.2-3.4) K/uL Fisher # (Auto) (0.11-0.59) K/uL Eos # (Auto) (0-0.5) K/uL Baso # (Auto) (0-0.2) K/uL Immature Gran # (Auto) (0.00-0.02) K/uL PT INR APTT PTT Ratio Sodium 144 (136-145) mmol/L Potassium 4.0 (3.5-5.1) mmol/L Chloride 109 H (98-107) mmol/L Carbon Dioxide 31 (21-32) mmol/L Anion Gap 4.0 (3-11) BUN 20 H (7-18) mg/dl Creatinine 0.79 (0.6-1.2) mg/dl Est Cr Clr Drug Dosing 49.3 ml/min Est GFR ( Amer) 83.7 Est GFR (Non-Af Amer) 72.2 BUN/Creatinine Ratio 25.7 H (10-20) Glucose 110 H (70-99) mg/dl Lactate 2.4 H* (0.4-2.0) mmol/L Calcium 8.8 (8.5-10.1) mg/dl Magnesium 1.9 (1.8-2.4) mg/dl Total Bilirubin 1.0 (0.2-1) mg/dl AST 38 H (15-37) U/L ALT 16 (12-78) U/L Alkaline Phosphatase 55 (45-117) U/L Ammonia (11-32) umol/L Troponin I < 0.015 (0-0.045) ng/ml Total Protein 6.8 (6.4-8.2) gm/dl Albumin 2.8 L (3.4-5.0) gm/dl Globulin 4.0 (2.5-4.0) gm/dl Albumin/Globulin Ratio 0.7 L (0.9-2) Procalcitonin (0-0.5) ng/ml TSH 1.120 (0.300-4.500) uIu/ml Specimen Hemolysis SARS-CoV-2 Ag (Rapid) (Negative) Blood Type Cancelled Antibody Screen Cancelled 04/18/20 04/18/20 04/18/20 Range/Units 12:47 13:15 14:37 WBC (4.8-10.8) K/uL RBC (4.2-5.4) M/uL Hgb (12.0-16.0) g/dL Hct (37-47) % MCV (80-100) fL MCH (25-34) pg MCHC (32-36) g/dL RDW Std Deviation (36.4-46.3) fL RDW Coeff of Lolita (11.5-14.5) % Plt Count (130-400) K/uL MPV (7.4-10.4) fL Immature Gran % (Auto) % Neut % (Auto) % Lymph % (Auto) % Fisher % (Auto) % Eos % (Auto) % Baso % (Auto) % Neut # (Auto) (1.4-6.5) K/uL Lymph # (Auto) (1.2-3.4) K/uL Fisher # (Auto) (0.11-0.59) K/uL Eos # (Auto) (0-0.5) K/uL Baso # (Auto) (0-0.2) K/uL Immature Gran # (Auto) (0.00-0.02) K/uL PT > 90.0 H INR > 9.7 H* APTT 75.7 H* PTT Ratio 2.7 Sodium (136-145) mmol/L Potassium (3.5-5.1) mmol/L Chloride (98-107) mmol/L Carbon Dioxide (21-32) mmol/L Anion Gap (3-11) BUN (7-18) mg/dl Creatinine (0.6-1.2) mg/dl Est Cr Clr Drug Dosing ml/min Est GFR ( Amer) Est GFR (Non-Af Amer) BUN/Creatinine Ratio (10-20) Glucose (70-99) mg/dl Lactate 2.6 H* (0.4-2.0) mmol/L Calcium (8.5-10.1) mg/dl Magnesium (1.8-2.4) mg/dl Total Bilirubin (0.2-1) mg/dl AST (15-37) U/L ALT (12-78) U/L Alkaline Phosphatase (45-117) U/L Ammonia (11-32) umol/L Troponin I (0-0.045) ng/ml Total Protein (6.4-8.2) gm/dl Albumin (3.4-5.0) gm/dl Globulin (2.5-4.0) gm/dl Albumin/Globulin Ratio (0.9-2) Procalcitonin (0-0.5) ng/ml TSH (0.300-4.500) uIu/ml Specimen Hemolysis SARS-CoV-2 Ag (Rapid) (Negative) Blood Type O Negative Antibody Screen NEGATIVE 04/18/20 04/18/20 04/18/20 Range/Units 14:46 17:58 Unknown WBC (4.8-10.8) K/uL RBC (4.2-5.4) M/uL Hgb 8.8 L (12.0-16.0) g/dL Hct 26.0 L (37-47) % MCV (80-100) fL MCH (25-34) pg MCHC (32-36) g/dL RDW Std Deviation (36.4-46.3) fL RDW Coeff of Lolita (11.5-14.5) % Plt Count (130-400) K/uL MPV (7.4-10.4) fL Immature Gran % (Auto) % Neut % (Auto) % Lymph % (Auto) % Fisher % (Auto) % Eos % (Auto) % Baso % (Auto) % Neut # (Auto) (1.4-6.5) K/uL Lymph # (Auto) (1.2-3.4) K/uL Fisher # (Auto) (0.11-0.59) K/uL Eos # (Auto) (0-0.5) K/uL Baso # (Auto) (0-0.2) K/uL Immature Gran # (Auto) (0.00-0.02) K/uL PT INR APTT PTT Ratio Sodium (136-145) mmol/L Potassium (3.5-5.1) mmol/L Chloride (98-107) mmol/L Carbon Dioxide (21-32) mmol/L Anion Gap (3-11) BUN (7-18) mg/dl Creatinine (0.6-1.2) mg/dl Est Cr Clr Drug Dosing ml/min Est GFR ( Amer) Est GFR (Non-Af Amer) BUN/Creatinine Ratio (10-20) Glucose (70-99) mg/dl Lactate (0.4-2.0) mmol/L Calcium (8.5-10.1) mg/dl Magnesium (1.8-2.4) mg/dl Total Bilirubin (0.2-1) mg/dl AST (15-37) U/L ALT (12-78) U/L Alkaline Phosphatase (45-117) U/L Ammonia 73.0 H (11-32) umol/L Troponin I (0-0.045) ng/ml Total Protein (6.4-8.2) gm/dl Albumin (3.4-5.0) gm/dl Globulin (2.5-4.0) gm/dl Albumin/Globulin Ratio (0.9-2) Procalcitonin (0-0.5) ng/ml TSH (0.300-4.500) uIu/ml Specimen Hemolysis SARS-CoV-2 Ag (Rapid) Negative (Negative) Blood Type Antibody Screen Imaging Data Radiologist's Impression: CT SCAN OF THE BRAIN WITHOUT IV CONTRAST CLINICAL HISTORY: Change in mental status. COMPARISON STUDY: CT of the brain dated 10/07/2019. TECHNIQUE: Unenhanced axial CT scan of the brain is performed from the vertex to the skull base. A dose lowering technique was utilized adhering to the principles of ALARA. The patient was scanned twice due to motion artifact. FINDINGS: Brain parenchyma: There are age-related involutional changes noting moderate subcortical and periventricular microangiopathic change. There is no hemorrhage, mass effect, or evidence of acute territorial ischemia by CT criteria. Caballero- white matter differentiation is preserved. No extra-axial fluid collection is seen. Ventricles, sulci, cisterns: Prominent secondary to involutional change. Intracranial vasculature: There is atherosclerotic calcification of the cavernous carotid arteries. Calvarium: Unremarkable. Sinuses and mastoids: The visualized paranasal sinuses are clear. There are bilateral mastoid effusions, right larger than left. Orbits: The bony orbits are grossly intact. There are bilateral ocular lens implants. IMPRESSION: There is no hemorrhage, mass effect, or evidence of acute territorial ischemia by CT criteria. ACT 112: Negative or not required by law. Electronically signed by: Pablo Pa M.D. 04/18/2020 2:04 PM SINGLE VIEW CHEST CLINICAL HISTORY: Change in mental status. Rectal bleeding. FINDINGS: An AP, portable, upright chest radiograph is compared to study dated 01/08/2019. The examination is significantly degraded by portable technique and patient rotation. The patient's head obscures the apices. The cardiomediastinal silhouette is unremarkable. Chronic interstitial thickening is similar to previous. There is bibasilar scarring/atelectasis. No airspace consolidation or large pleural effusion is identified. No pneumothorax is seen. The skeletal structures are osteopenic. There are healed left-sided rib fractures. Degenerative change is noted in the shoulders and thoracic spine. Fusion hardware is partially visualized in the upper lumbar spine. IMPRESSION: No active disease in the chest. ACT 112: Negative or not required by law. Electronically signed by: Pablo Pa M.D. 04/18/2020 12:[address] SCAN OF THE ABDOMEN AND PELVIS WITH IV CONTRAST CLINICAL HISTORY: Hematochezia. COMPARISON STUDY: Pelvic CT dated 10/29/2018. TECHNIQUE: Following the IV administration of 94 cc of Optiray 320, CT scan of the abdomen and pelvis is performed from the lung bases to the proximal femora. Images are reviewed in the axial, sagittal, and coronal planes. IV contrast was administered without complication. A dose lowering technique was utilized adhering to the principles of ALARA. The examination is degraded by streak artifact from the arms, as well as metallic streak artifact from extensive lumbar spinal fusion hardware and bilateral hip arthroplasties. There is also motion artifact. CT DOSE: 1419.61 mGy.cm FINDINGS: Lung bases: The heart is normal in size and without pericardial effusion. A small fat-containing Bochdalek hernia is seen in the right lung base. There is bibasilar scarring/atelectasis. No airspace consolidation or pleural effusion is identified. There are esophageal varices. Liver: The contrast-enhanced liver is normal in size, contour, and attenuation. There is no intrahepatic biliary ductal dilatation. The hepatic veins and portal veins are patent. Gallbladder: There are numerous calcified gallstones with no CT evidence of acute cholecystitis. Spleen: The spleen is enlarged, measuring 13.6 cm in length. Pancreas: Unremarkable. Adrenal glands: Unremarkable. Kidneys: The contrast enhanced kidneys demonstrate cortical atrophy and are without hydronephrosis. The kidneys enhance symmetrically. A circumaortic left renal vein is incidentally noted. There is evidence of a left renal shunt, as the left renal vein and the esophageal varices are contiguous. The splenic vein is patent. Abdominal vasculature: The abdominal aorta is normal in course and caliber noting mild to moderate atherosclerotic calcification. Bowel: There is moderate colonic diverticulosis without CT evidence of acute diverticulitis. No bowel obstruction is seen. The appendix is not identified. There is extravasation of IV contrast into the lower rectum as seen on image #[id number]. Peritoneum: There is no intraperitoneal free air or abdominal ascites. Lymphadenopathy: None. Pelvic viscera: Evaluation of the pelvis is significantly degraded by streak artifact from bilateral hip arthroplasties. The bladder is grossly unremarkable. The uterus is surgically absent. No adnexal lesion is seen. There is asymmetric atrophy of the right pelvic musculature as compared to left. Skeletal structures: The skeletal structures are heterogeneously osteopenic. There is moderate lumbosacral spondylosis, with postoperative change from L3-L5 spinal fusion. No lytic or blastic lesions are seen. Bilateral hip arthroplasties are in place. IMPRESSION: 1. Significantly streak and motion compromised examination. 2. There is evidence of IV contrast extravasation into the lower rectum. Correlation with direct visualization is recommended. 3. There are large esophageal varices with evidence of a left renal venous shunt. 4. Mild splenomegaly. 5. There is no CT evidence of hepatic cirrhosis. 6. Cholelithiasis without CT evidence of acute cholecystitis. 7. Colonic diverticulosis without CT evidence of acute diverticulitis. 8. Additional findings as above. ACT 112: Negative or not required by law. Electronically signed by: Pablo Pa M.D. 04/18/2020 2:16 PM [facility] Narrative Patient was seen and evaluated as above in room B3. Review was performed of nursing notes and vital signs. I did review pertinent previous visits and patient history. After obtaining a thorough history and physical examination the above work up was performed. Patient at this time is nonverbal. Patient is here with her daughter. The patient daughter notes that she has had a decline in both mental and physical status since September. The daughter brings the patient today noting that she was complaining of a headache, abdominal pain and now bright red blood per rectum. Patient is on Coumadin for reported "clots in the neck". IV access was established. Labs were drawn. I did speak with nursing staff who helped down the patient and I did note that there was some minor amounts of bright red blood coming from the rectal region. Laboratory studies reveal no leukocytosis. Hemoglobin 10.2 down from 14.9 previously. Type and screen initiated. INR was greater than 9.7. Lactic acid elevation noted. Troponin negative. Pro-Saúl negative. Covid screen negative. EKG per my interpretation reveals normal sinus rhythm at a rate of 83 bpm. No ectopy or ischemic change. QTc 521. Head CT obtained given the patient's altered mental status with subjective reports from patient daughter of headache. Results as above. No acute process. Chest x-ray no acute process. CT scan of the abdomen pelvis is concerning for that of IV contrast extravasation into the lower rectum which would fit with the patient current GI bleed suspected on presentation. Case was discussed with the attending physician. Given the GI bleeding, in the setting of altered mental status with a significantly elevated INR I did order 10 mg of IV vitamin K. The attending physician did also order Kcentra, as well as pantoprazole IV and octreotide. GI was consulted and the attending physician did speak with Dr. Zambrano. Hand Washer also consulted. I spoke to Dr. Carroll and at the time of our conversation the patient had already received IV vitamin K, Kcentra. I do believe that further evaluation and management is warranted in the inpatient setting. Case discussed with the hospitalist. Please refer to further documentation regarding her stay. Patient is hemodynamically stable at this time. I do not suspect the lactic acid elevation to be infectious at this time. I also believe that the benefit of reversing the patient's anticoagulation outweighs the risk. It is felt that this is a life-sustaining measure. Case was discussed with the attending physician. Patient was seen during a period of high volume and acuity. This is during the COVID-19 pandemic. An order was placed for continuous cardiac monitoring. The monitor shows a rate of 80 with sinus rhythm. I attest that I have personally reviewed the patient medication list. GCS: 15 In the evaluation and treatment of this patient the following differential diagnoses were entertained: Meningitis, encephalitis, acute intracranial hemorrhage, GI bleed, perforation, colonic ischemia, among others. Impression & Plan Acute GI bleeding, Supratherapeutic INR Discharge Plan Visit Data Chief Complaint: Rectal Bleed Stated Complaint: SEVERE STOMACH,HEADACHE,SEVERE RECTAL BLEEDING ED Provider: Selvin Payne ED Midlevel Provider: Ramior Pringle Discharge Problem: Acute GI bleeding, Supratherapeutic INR Discharge Instructions Interventions: ED Discharge Assessment Last Done: 04/18/20 19:40 Forms Stand Alone Forms: [facility] Prescriptions Prescriptions: No Action multivitamin Tablet 1 tab PO QAM RF: 0 leflunomide 10 mg Tablet 10 mg PO QAM RF: 0 furosemide 20 mg tablet 20 mg PO BID PRN (Reason: Edema) RF: 0 potassium chloride [Klor-Con M10] 10 mEq tablet,ER particles/crystals 20 meq PO BID RF: 0 escitalopram oxalate 5 mg tablet 5 mg PO QAM RF: 0 ferrous sulfate 27 mg iron Tablet 27 mg PO QAM RF: 0 warfarin 3 mg tablet 6 mg PO QAM RF: 0 Referrals Referrals: Emma Cramer DO [Primary Care Provider] -
[2020-04-19 00:30] LABS: Hematocrit (blood only) 24.9 % (37-47); Hemoglobin 8.5 g/dL (12.0-16.0)
[2020-04-19] MEDS: PANTOprazole 40 MG in DEXTROSE 5% 100 ML IV SCH ×2 (03:50→10:21)
--- NOTE | 2020-04-19 06:54 | Emergency Department Note ---
ED Visit Note I have seen and examined this patient with Ramiro Pringle and generally agree with the treatment plan as discussed. Patient presents with a rectal bleed. Due to the patient's abnormal CAT scan finding she was started on vitamin K. I also suspect the patient may be in some sort of alcohol withdrawal therefore she was also started on a banana bag. .
[2020-04-19 08:46] LABS: Basophils # (auto) 0.02 K/uL (0-0.2); Basophils % (auto) 0.5 %; Eosinophils # (auto) 0.08 K/uL (0-0.5); Eosinophils % (auto) 2.1 %; Hematocrit (blood only) 24.5 % (37-47); Hemoglobin 8.1 g/dL (12.0-16.0); Lymphocytes % (auto) 23.1 %; Mean Corpuscular Hemoglobin 33.2 pg (25-34); Mean Corpuscular Hgb Conc 33.1 g/dL (32-36); Mean Corpuscular Volume 100.4 fL (80-100); Mean Platelet Volume 8.8 fL (7.4-10.4); Monocytes # (auto) 0.26 K/uL (0.11-0.59); Monocytes % (auto) 6.7 %; Neutrophils # (auto) 2.63 K/uL (1.4-6.5); Neutrophils % (auto) 67.6 %; Platelet Count 122 K/uL (130-400); RDW Coefficient of Variation 14.1 % (11.5-14.5); RDW Standard Deviation 51.1 fL (36.4-46.3); Red Blood Count 2.44 M/uL (4.2-5.4); White Blood Count 3.89 K/uL (4.8-10.8)
[2020-04-19 08:58] LABS: INR 1.2 (0.9-1.1); Partial Thromboplastin Ratio 1.1; Partial Thromboplastin Time 29.4 Seconds (21.0-31.0); Prothrombin Time 12.4 Seconds (9.0-12.0)
[2020-04-19 09:07] LABS: Albumin Level 2.3 gm/dl (3.4-5.0); BUN Creatinine Ratio 21.7 (10-20); Calcium 8.3 mg/dl (8.5-10.1); Creatinine Clr Calc Pharmacy 52.7 ml/min; Est GFR (African American) 90.6; Est GFR (Non-African American) 78.1; Potassium 3.6 mmol/L (3.5-5.1)
[2020-04-19 09:09] LABS: Albumin Globulin Ratio 0.7 (0.9-2); Bilirubin,Total 1.3 mg/dl (0.2-1); Globulin 3.5 gm/dl (2.5-4.0); Total Protein 5.8 gm/dl (6.4-8.2)
--- NOTE | 2020-04-19 09:29 | Hospitalist Progress Note ---
Date of Service April 19, 2020 Assessment & Plan (1) Acute GI bleeding: Mrs. Sky is a 75 yo woman on chronic anticoagulation with coumadin who was admitted for evaluation of BRBPR in the setting of a supratherapeutic INR. - patient with report of several episodes of BRBPR prior to admission - INR on admission was > 9.7, down to 1.2 with Vit K and Kcentra administration - coumadin on hold - patient is hemodynamically stable - Hgb is currently above transfusion threshold at 8.5 - CT AP showing contrast extravasation in rectum, consistent with lower GI etiology - continue IV protonix until upper source is ruled out - GI consulted, plans for upper and lower endoscopy tomorrow 04/20 (2) Anemia: - Hgb 8.5, MCV 100 - iron and ferritin normal, transferrin low, B12 and folate normal - patient is on home iron supplement - Type and screen performed - Blood consent signed - transfuse if hgb < 8 - no signs of active bleeding or acute blood loss on exam - etiology: suspect multifactorial in the setting of acute blood loss vs. iron deficiency vs. possibly megaloblastic vs. anemia of chronic disease (3) Supratherapeutic INR: - INR > 9.7 on admission, down to 1.2 with Vit K and Kcentra - patient is on chronic coumadin, although indication is unclear. No evidence of afib on monitor since admission. Ambiguous report of "blood clots in neck and brain" provided by daughter on admission. Will attempt to obtain clarification. - hold coumadin - trend (4) Hepatic encephalopathy: - family reports progressive cognitive decline over the the past 6 months, acutely worse over past week - ammonia level elevated on admission to 73 - Liver US ordered; no evidence of cirrhosis on CT scan of abdomen - patient would benefit from lactulose, however will hold in the setting of an acute GI bleed - Head CT negative on admission. WBC normal. Lactate has cleared. Electrolyte normal. Cr normal. UA questionable. - delirium precautions (5) Ambulatory dysfunction: - patient with history of Etoh use - associated encephalopathy - no obvious oculomotors defects on exam - currently on IV thiamine with concerns for possible Wernicke encephalopathy - PT/OT (6) Abnormal urinalysis: - UA on admission showing > 30 WBCS, 1+ LE, 4+ bacteria. Neg Nitrites - Urine culture pending - no report of urinary symptoms, however patient is altered - afebrile, WBC normal, no concern for upper tract involvement - will hold off on antibiotics at this time Dispo: Med/Surg with Tele Diet: NPO in anticipation of procedure Code: DNR/dNI DVT ppx: INR supratherapeutic Admission and Anticipated Discharge Date Admission Date: April 18, 2020 Supervising Physician Co-Signing Physician Notes Patient seen and examined with PGY-1 Dr. Paulino and PGY-3 Dr. Cheung. Agree with history, exam findings, assessment and plan of care as outlined: In brief, Ms. Sky is a 75 year old female with history of regular alcohol use, VTE (unknown location) anticoagulated with coumadin admitted with bright red blood per rectum. Has not had further bleeding episodes since admission. Denies abdominal pain, nausea. Vital signs and nursing notes reviewed. On exam, well appearing, no acute distress. No asterixis. Oriented to self only. Labs and imaging reviewed. 1. anemia secondary to acute lower GI bleed caused by supratherapeutic INR. Hgb stabilized a in the mid-8's. No further bleeding episodes since admission to the hospital. Appreciate GI recs. Plan for EGD and c-scope tomorrow. 2. Supratherapeutic INR. On coumadin as an outpatient. Reversed with Vitamin K and KCentra. INR today 1.2. Holding coumadin. Obtaining prior records to determine why she is anticoagulated and if she should continue to be so. 3. Esophageal varices. see below for discussion of hepatic issue. 4. Elevated ammonia level possible cause of increased confusion. No history of cirrhosis and liver texture on CT non-cirrhotic. RUQ ultrasound with coarse echotexture. 5. remote history of regular alcohol use. possible contribution to hepatic issue described above. Dispo: pending EGD, colonoscopy. Subjective patient reports no discomfort. nursing reported no BMs since being in the hospital Review of Systems Review of Systems: Unobtainable due to cognitive status Physical Exam Constitutional: WD/WN, vitals as above + altered mental status and cooperative; no acute distress Eyes: + anicteric sclerae ENMT: external ear and nose normal, oropharynx normal Neck: normal visual inspection and trachea midline Respiratory: normal respiratory effort, lungs clear to auscultation Auscultation: no crackles, no rales, no rhonchi and no wheezes Cardiovascular: RRR, no murmur, no edema Heart Sounds: normal S1 and normal S2 Extremities: no pedal edema Gastrointestinal (Abdomen): normal bowel sounds, soft, nontender, no hepa tosplenomegaly Skin: no rashes, warm and dry + scar (abdomen) Neurologic: moves all extremities, awake and + confused; no focal motor deficits Motor/Sensory: no tremor and no asterixis Psychiatric: Orientation: alert and oriented to person; + not oriented to place and + not oriented to time Affect: euthymic affect Results & Data Results & Data ([facility]) Vital Signs (Past 12 Hours) Vital Signs Temp Pulse Pulse Resp BP Pulse Ox 04/19/20 07:11 36.9 C 77 18 131/78 97 04/19/20 04:26 36.5 C 70 16 120/67 98 04/18/20 23:07 89 04/18/20 23:01 36.5 C 72 20 119/65 100 04/18/20 23:00 76 Resident Activity Tracking Resident Involvement: Resident Care Provided Care Provided: Adult Hospital Medicine
[2020-04-19] MEDS: THIAMINE HCL 200 MG in SODIUM CHLORIDE 0.9% 50 ML IV SCH ×3 (10:21→19:31)
[2020-04-19] MEDS: ESCITALOPRAM OXALATE 10 MG TAB PO SCH (10:21)
[2020-04-19 11:01] LABS: Appearance Urine Clear (Clear); Bacteria Urine Automated 4+ (Negative); Bilirubin Urine Negative (Negative); Blood Urine Negative (Negative); Color Urine Dark Yellow; Epithelial Cell Urine Auto 0-5 /lpf (0-5); Glucose Urine UA Negative (Negative); Ketones Urine Negative (Negative); Leukocyte Esterase Urine 1+ (Negative); Nitrite Urine Negative (Negative); Protein Urine Negative (Negative); RBC Urine Automated 0-4 /hpf (0-4); Specific Gravity Urine 1.027 (1.000-1.030); Urobilinogen Urine Negative (Negative); WBC Urine Automated >30 /hpf (0-5); pH Urine 6.5 (4.5-7.5)
--- NOTE | 2020-04-19 12:18 | Gastrointestinal Consultation ---
Date of Consultation April 19, 2020 Assessment & Plan (1) Anemia: (2) Rectal bleeding: (3) Esophageal varices: Discussed with daughter. While aptient is a DNR/DNI, daughter does wish to aggressively pursue rectal bleeding and CT findings. -Obtain a liver US for further assessment of liver texture given suspicion for cirrhosis -Would defer to primary team to rule out other underlying causes of confusion as well as obtaining previous records to identify why patient is anticoagulated as daughter is unsure. -Daughter desires Endoscopic evaluation with EGD and colonoscopy for further evaluation of esophageal varices as well as rectal bleeding & CT abnormalities. Will discuss further to determine appropriate timing. Supervising Physician Co-Signing Physician Notes Agree with ENRICO Andre as above Abd: Soft, NT, ND, +BS Miralax prep today NPO after midnight Colonoscopy in AM History of Present Illness Reason for Consultation: Lower GI bleed Attending Physician: Pool Guidry, History of Present Illness Patient is a 75 yo female admitted to [facility] for rectal bleeding. Patient is unable to provide any medical history for me. She is oriented to self only and is not able to recall year or where she is at presently. Reportedly, she was brought to [facility] after experiencing significant BRBPR. She was found to have a supratherapeutic INR >9.7 in the ED. She reportedly is on Coumadin, though I do not see a reason documented in her chart. She has apparently received care at [facility], but I do not have notes regarding these admissions or outpatient visits. She is unable to recall if she's had a colonoscopy. Her H/H is 8.1/24.5. In September 2019, her H/H was found to be 14.9/43.2 during a different admission to [facility]. She had a CT scan of the abdomen/pelvis during this admission that showed extravasation of contrast into the rectum. Direct visualization was recommended. She was noted to have esophageal varices on CT. Reportedly she has a history of significant alcohol consumption. I do not have any GI records that document an endoscopy being performed at any point. Of note, the liver texture appears unremarkable in this CT scan. I did discuss the patient's care with her daughter and medical decision-maker Shirlene. She reports that her mother is an alcoholic and has lack of continuity in her medical care. She notes that she and her siblings all live in different states so it has not been easy to monitor that their mother has been seeking care and making appointments. She notes that she has been progressively confused for some time, however notes that over the course of the past month things have been worse. She notes that her mother has not recognized her children. She notes that she has been experiencing visual hallucinations ("seeing bugs). In the ED her ammonia was mildly elevated >70. T Bili is 1.3. Ferritin and iron are normal. Folate & B12 levels normal. AST/ALT normal. Daughter knows of no previously diagnosed liver disease, but again notes that Yen drinks heavily. Unclear if patient has had EGD and colonoscopy in the past. The daughter is also unsure why patient is taking Coumadin. Patient is negative for COVID19. Allergies Allergy/AdvReac Type Severity Reaction Status Date / Time ibuprofen Allergy Intermediate HIVES Verified 04/18/20 11:47 (TOLERATES OTHER NSAIDS) Home Medications Medication Instructions Recorded Confirmed Type escitalopram oxalate 5 mg PO QAM 04/18/20 04/18/20 History ferrous sulfate 27 mg PO QAM 04/18/20 04/18/20 History furosemide 20 mg PO BID PRN 04/18/20 04/18/20 History leflunomide 10 mg PO QAM 04/18/20 04/18/20 History multivitamin 1 tab PO QAM 04/18/20 04/18/20 History potassium chloride [Klor-Con M10] 20 meq PO BID 04/18/20 04/18/20 History warfarin 6 mg PO QAM 04/18/20 04/18/20 History Patient History Medical History Generalized osteoarthritis of hand GERD without esophagitis History of alcohol use disorder Hypertension Osteoporosis 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 Vitamin D deficiency Surgical History H/O bilateral hip replacements History of back surgery Status post amputation of toe Status post open reduction and internal fixation (ORIF) of fracture (01/2018) L distal radius and ulna Family History Father Alzheimer disease Mother Diabetes Sister Lung cancer Social History Smoking Status: Unknown if ever smoked Hx Alcohol Use: Yes Preferred Language: Turkmen Communication Ability: Confusion 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 Technician Required: No Beliefs That Will Affect Care: None marital status: / Current Living Situation: Alone current occupational status: retired Other Information That Helps Us Care for You: No (N/A) Feels Safe at Home: Declines to Answer Assistive Devices: None Review of Systems Review of Systems: Unobtainable due to cognitive status Physical Exam Constitutional: chronically ill appearing Neck: normal visual inspection Respiratory: normal respiratory effort Cardiovascular: Extremities: no edema Gastrointestinal (Abdomen): Inspection/Auscultation: abdomen normal to inspection; abdomen not distended Percussion/Palpation: abdomen soft; abdomen nontender Musculoskeletal: Head/Neck/Chest: normocephalic Skin: no rashes Neurologic: Motor/Sensory: no tremor Psychiatric: Orientation: alert and oriented to person; + not oriented x 3, + not oriented to place and + not oriented to time Results & Data ([facility]) Vital Signs (Past 12 Hours) Vital Signs Temp Pulse Resp BP Pulse Ox 04/19/20 07:11 36.9 C 77 18 131/78 97 04/19/20 04:26 36.5 C 70 16 120/67 98 PG Care Time/CCT Total # of Minutes Spent Total Time Spent with Patient: Total time spent is greater than 50% in coordination of care (as documented) at patient's floor/unit and/or counseling patient: Coding Level of Care Code 13791 Initial Inpt Care Lvl 3 Diagnoses Anemia D64.9 Rectal bleeding K62.5 Esophageal varices I85.00
--- NOTE | 2020-04-19 15:04 | Ultrasound Report ---
US liver CLINICAL HISTORY: Esophageal varices; alcohol abuse COMPARISON STUDY: CT scan dated 04/18/2020 FINDINGS: No pancreatic masses are visualized ultrasonographically. The pancreatic duct is at the upper limits of normal in size. The liver is diffusely heterogeneous. Underlying hepatocellular disease must be considered. The commo n bile duct is minimally dilated measuring 7 mm. There are multiple gallstones. There is no gallbladder wall thickening. There is no pericholecystic f luid. The technologist reports a negative sonographic Varela sign. There is no right-sided hydronephrosis. IMPRESSION: 1. Cholelithiasis. Minimally dilated common bile duct measuring 7 mm. 2. Diffusely coarsened hepatic echotexture. Underlying hepatocellular disease must be considered. ACT 112: Negative or not required by law. Electronically signed by: Chas White M.D. 04/19/2020 3:03 PM
[2020-04-19] MEDS ORDERED: bisacodyL 5 MG TABEC PO ONE (18:00)
[2020-04-19] MEDS: POLYETHYLENE (MIRALAX) 17 GM PACK PO SCH (19:04)
[2020-04-19] MEDS: PANTOprazole 40 MG in SYRINGE 0 ML IV SCH (19:31)
[2020-04-20] MEDS: POLYETHYLENE (MIRALAX) 17 GM PACK PO SCH (02:46)
--- NOTE | 2020-04-20 07:57 | Anesthesiology Consultation ---
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 Rell Zacarias, Height/Weight Height: 5 ft 3 in Weight: 56.7 kg Allergies Allergy/AdvReac Type Severity Reaction Status Date / Time ibuprofen Allergy Intermediate HIVES Verified 04/18/20 11:47 (TOLERATES OTHER NSAIDS) Medications Home Medications Medication Instructions Recorded Confirmed Last Taken escitalopram oxalate 5 mg PO QAM 04/18/20 04/18/20 04/17/20 ferrous sulfate 27 mg PO QAM 04/18/20 04/18/20 04/17/20 furosemide 20 mg PO BID PRN 04/18/20 04/18/20 04/17/20 leflunomide 10 mg PO QAM 04/18/20 04/18/20 04/17/20 multivitamin 1 tab PO QAM 04/18/20 04/18/20 04/17/20 potassium chloride [Klor-Con M10] 20 meq PO BID 04/18/20 04/18/20 04/17/20 warfarin 6 mg PO QAM 04/18/20 04/18/20 04/17/20 Active Medications Generic Name Dose Route Start Last Admin Trade Name Freq PRN Reason Stop Dose Admin Escitalopram Oxalate 5 mg 04/19/20 09:00 04/19/20 10:21 Escitalopram Oxalate 10 Mg Tab PO 05/19/20 08:59 5 mg QAM DANIEL Administration Thiamine HCl 200 mg/ Sodium 52 mls @ 208 mls/hr 04/19/20 09:00 04/19/20 21:01 Chloride IV 04/22/20 08:59 Infused TID DANIEL Infusion Pantoprazole Sodium 40 mg/ 10 mls @ 5 mls/min 04/19/20 21:00 04/19/20 19:31 Syringe IV 05/19/20 20:59 5 mls/min BID DANIEL Administration Past Medical History Medical History Generalized osteoarthritis of hand GERD without esophagitis History of alcohol use disorder Hypertension Osteoporosis 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 Vitamin D deficiency Past Family History Family History Father Alzheimer disease Mother Diabetes Sister Lung cancer Past Surgical History Surgical History H/O bilateral hip replacements History of back surgery Status post amputation of toe Status post open reduction and internal fixation (ORIF) of fracture (01/2018) L distal radius and ulna Social History Smoking Status: Unknown if ever smoked Hx Alcohol Use: Yes alcohol intake frequency: other substance use type: unknown Last Used Substance: Unknown Physical Exam Vital Signs Last Vital Signs Temp 98.1 F 04/20/20 04:00 Pulse 72 04/20/20 07:13 Resp 18 04/20/20 04:00 BP 123/84 04/20/20 04:00 Pulse Ox 95 04/20/20 04:00 Testing Laboratory Results 04/19/20 16:31 04/19/20 08:20 PT 12.4 Seconds (9.0-12.0) H 04/19/20 08:20 INR 1.2 (0.9-1.1) H 04/19/20 08:20 APTT 29.4 Seconds (21.0-31.0) 04/19/20 08:20 Urine Color Dark Yellow 04/19/20 10:42 Urine Appearance Clear (Clear) 04/19/20 10:42 Urine pH 6.5 (4.5-7.5) 04/19/20 10:42 Ur Specific [place] 1.027 (1.000-1.030) 04/19/20 10:42 Urine Protein Negative (Negative) 04/19/20 10:42 Urine Glucose (UA) Negative (Negative) 04/19/20 10:42 Urine Ketones Negative (Negative) 04/19/20 10:42 Urine Nitrite Negative (Negative) 04/19/20 10:42 Ur Leukocyte Esterase 1+ (Negative) H 04/19/20 10:42 Urine WBC (Auto) >30 /hpf (0-5) H 04/19/20 10:42 Urine RBC (Auto) 0-4 /hpf (0-4) 04/19/20 10:42 U Hyaline Cast (Auto) 1-5 /lpf (0-5) 04/19/20 10:42 U Epithel Cells (Auto) 0-5 /lpf (0-5) 04/19/20 10:42 Urine Bacteria (Auto) 4+ (Negative) H 04/19/20 10:42 Blood Type O Negative 04/18/20 13:15 Antibody Screen NEGATIVE 04/18/20 13:15 04/18/20 12:38 Aerobic Blood Culture - Preliminary Blood No growth in Aerobic bottle after 24 hours. Anaerobic Blood Culture - Preliminary No growth in Anaerobic bottle after 24 hours. 04/18/20 12:17 Aerobic Blood Culture - Preliminary Blood No growth in Aerobic bottle after 24 hours. Anaerobic Blood Culture - Preliminary No growth in Anaerobic bottle after 24 hours. Electrocardiogram Date: 04/18/20 Poor data quality, interpretation may be adversely affected Normal sinus rhythm, rate 83 bpm Low voltage QRS Borderline ECG When compared with ECG of 28-AUG-2014 21:06, QT has lengthened Confirmed by Dontae Schilling ([id number]) on 04/18/2020 6:23:59 PM Chest X-Ray Date: 04/18/20 Findings: + NAD
--- NOTE | 2020-04-20 08:23 | Hospitalist Progress Note ---
Date of Service April 20, 2020 Assessment & Plan (1) Acute GI bleeding: Mrs. Sky is a 75 yo woman on chronic anticoagulation with coumadin who was admitted for evaluation of BRBPR in the setting of a supratherapeutic INR. Hemoglobin has increase, suggestive acute bleed has stopped. - patient with report of several episodes of BRBPR prior to admission - INR on admission was > 9.7, down to 1.2 with Vit K and Kcentra administration - coumadin on hold - patient is hemodynamically stable - Hgb increased to 9.7 today, up from 8.7 - CT AP showing contrast extravasation in rectum, consistent with lower GI etiology - continue IV protonix until upper source is ruled out - GI consulted, was to perform upper and lower endoscopy today, however patient did not drink bowel prep last night. Utility is therefore in question. Patient also refusing to be examined today - will leave possible scope up to GI. (2) Anemia: - Hgb 9.7 today, up from 8.7 yesterday - MCV 100 - iron and ferritin normal, transferrin low, B12 and folate normal - patient is on home iron supplement - Type and screen performed - Blood consent signed - transfuse if hgb < 8 - no signs of active bleeding or acute blood loss on exam - etiology: suspect multifactorial in the setting of acute blood loss vs. iron deficiency vs. possibly megaloblastic vs. anemia of chronic disease (3) Supratherapeutic INR: - INR > 9.7 on admission, down to 1.2 with Vit K and Kcentra - patient is on chronic coumadin, although indication is unclear. No evidence of afib on monitor since admission. Ambiguous report of "blood clots in neck and brain" provided by daughter on admission. Daughter reports patient was started on it at [facility] - HIM records request ordered. - hold coumadin - trend (4) Hepatic encephalopathy: - family reports progressive cognitive decline over the the past 6 months, acutely worse over past week - while patient likely has underlying dementia, acute encephalopathy seems to be resolving - ammonia level elevated on admission to 73, down to 43 today - no evidence of cirrhosis on CT scan of abdomen; liver US showing a diffusely coarsened hepatic echotexture - patient would benefit from lactulose, however will hold in the setting of an acute GI bleed - Head CT negative on admission. WBC normal. Lactate has cleared. Electrolyte normal. Cr normal. Urine culture is positive for gram - bacilli, may be contributory. - delirium precautions (5) Ambulatory dysfunction: - patient with history of Etoh use - associated encephalopathy - no obvious oculomotors defects on exam - currently on IV thiamine with concerns for possible Wernicke encephalopathy - PT/OT (6) Cholelithiasis: - incidentally noted on liver US on 04/19 - associated minimally dilated CBD, measuring 7mm. - sonographic lanier's sign was negative - patient refused abdominal exam today, although clinically well appearing and without fevers - if patient reports increase in abdominal pain, will order dedicated gallbladder US (7) Abnormal urinalysis: - UA on admission showing > 30 WBCS, 1+ LE, 4+ bacteria. Neg Nitrites - Urine culture growing >100,000 colonies of gram neg bacilli; continue to follow culture - no report of urinary symptoms, however patient is altered - afebrile, WBC normal, no concern for upper tract involvement - will initiate therapy with Macrobid, 100mg, BID at this time. Although this medication is on Beer's List, CrCl is > 30. Dispo: Med/Surg with Tele Diet: NPO in anticipation of procedure Code: DNR/DNI DVT ppx: INR supratherapeutic Admission and Anticipated Discharge Date Admission Date: April 18, 2020 Supervising Physician Co-Signing Physician Notes Patient seen and examined independently of PGY-1 Dr. Paulino. Agree with history, exam findings, assessment and plan of care as outlined: In brief, Ms. Sky is a 75 year old female with history of regular alcohol use, VTE (unknown location) anticoagulated with coumadin admitted with bright red blood per rectum. Had two small bowel movements with blood. Per one nursing report, there was bright red blood. Another report that there were clots that looked like old blood. Has not had any bleeding this morning. Vital signs and nursing notes reviewed. On exam, well appearing, no acute distress. Oriented to self and place. Would not allow for a physical exam. Labs and imaging reviewed. 1. anemia secondary to acute lower GI bleed caused by supratherapeutic INR. Hgb 9.7. Suspect the initial bleeding may have been caused by AVM. 2. Supratherapeutic INR. On coumadin as an outpatient. Reversed with Vitamin K and KCentra. INR today 1.2. Holding coumadin. Obtaining prior records to determine why she is anticoagulated and if she should continue to be so. 3. Gram neg bacilli growing in urine. Start macrobid. 4. Esophageal varices. see below for discussion of hepatic issue. 5. Elevated ammonia level (73?43) possible cause of increased confusion. No history of cirrhosis and liver texture on CT non-cirrhotic. RUQ ultrasound with coarse echotexture. 6. remote history of regular alcohol use. possible contribution to hepatic issue described above. Dispo: hopeful for discharge tomorrow if she does not have any more bleeding. Will n on discharge. Will need to decide if she should continue with anticoagulation on discharge. Subjective no acute events overnight. nursing reported 2 bloody BMs yesterday. patient initially refused lab draws this am - allowed collection later. when asked to turn the TV down, Mrs. Sky replied " no, I dont trust anyone." Nursing also said she refused her GI prep yesterday. Review of Systems Review of Systems: Unobtainable due to cognitive status Physical Exam Physical Exam: Patient refused exam by physicians today at bedside. She was seated upright in her bedside chair, appeared comfortable. Constitutional: + altered mental status; no acute distress Eyes: + anicteric sclerae ENMT: external ear and nose normal, oropharynx normal Neck: normal visual inspection and trachea midline Respiratory: no respiratory distress Auscultation: no crackles, no rales, no rhonchi and no wheezes Cardiovascular: Extremities: no pedal edema Skin: no rashes, warm and dry Neurologic: moves all extremities, awake and + confused Psychiatric: Orientation: alert; + not oriented to person, + not oriented to place (knew she was in a hospital, thought in [facility]) and + not oriented to time (knew the year, not the month) Eye Contact: good eye contact Affect: euthymic affect Results & Data Results & Data ([facility]) Vital Signs (Past 12 Hours) Vital Signs Temp Pulse Pulse Resp BP BP Pulse Ox 04/20/20 07:13 72 04/20/20 04:00 36.7 C 86 18 123/84 95 04/20/20 00:05 78 04/20/20 00:00 37.0 C 69 18 128/66 96 Resident Activity Tracking Resident Involvement: Resident Care Provided Care Provided: Adult Hospital Medicine
[2020-04-20] MEDS: PANTOprazole 40 MG in SYRINGE 0 ML IV SCH ×2 (09:19→20:04)
[2020-04-20] MEDS: THIAMINE HCL 200 MG in SODIUM CHLORIDE 0.9% 50 ML IV SCH ×3 (09:20→20:22)
[2020-04-20] MEDS: ESCITALOPRAM OXALATE 10 MG TAB PO SCH (09:20)
[2020-04-20 09:41] LABS: Hematocrit (blood only) 29.2 % (37-47); Hemoglobin 9.7 g/dL (12.0-16.0)
[2020-04-20 09:55] LABS: BUN Creatinine Ratio 16.6 (10-20); Calcium 8.9 mg/dl (8.5-10.1); Creatinine Clr Calc Pharmacy 48.7 ml/min; Est GFR (African American) 82.4; Est GFR (Non-African American) 71.1; INR 1.2 (0.9-1.1); Potassium 3.4 mmol/L (3.5-5.1); Prothrombin Time 12.4 Seconds (9.0-12.0)
--- NOTE | 2020-04-20 13:36 | Gastroenterology Progress Note ---
Date of Service April 20, 2020 Assessment & Plan (1) Anemia: (2) Hepatic encephalopathy: (3) Esophageal varices: (4) History of alcohol use disorder: (5) Supratherapeutic INR: (6) Acute GI bleeding: (7) Rectal bleeding: Patient refused bowel prep H/H stable following transfusion Due to Dementia as well as advanced liver disease, I would recommend a Palliative care consult and further discussion with family regarding overall healthcare goals moving forward. Continue supportive care and current medications. Admission and Anticipated Discharge Date Admission Date: April 18, 2020 Subjective Patient is demented, and would not answer any questions today. Nursing reports that she refused to take her bowel prep for colonoscopy today. Review of Systems Review of Systems: Unobtainable due to cognitive status Physical Exam Constitutional: no acute distress Respiratory: normal respiratory effort; no respiratory distress and no labored breathing Results & Data Results & Data ([facility]) Vital Signs (Past 12 Hours) Vital Signs Temp Pulse Pulse Resp BP BP Pulse Ox 04/20/20 11:20 36.4 C L 65 18 145/72 H 96 04/20/20 07:13 72 04/20/20 04:00 36.7 C 86 18 123/84 95 PG Care Time/CCT Total # of Minutes Spent Total Time Spent with Patient: Total time spent is greater than 50% in coordination of care (as documented) at patient's floor/unit and/or counseling patient: Coding Level of Care Code 53710 Subseq Hosp Care Lvl 2 Diagnoses Anemia D64.9 Hepatic encephalopathy K72.90 Esophageal varices I85.00 History of alcohol use disorder Z87.898 Supratherapeutic INR R79.1 Acute GI bleeding K92.2 Rectal bleeding K62.5
[2020-04-20] MEDS ORDERED: LORazepam 0.25 MG/0.5 ML VIAL IV STA (19:54)
[2020-04-20] MEDS: NITROFURANTOIN MONOHYDRATE 100 MG CAP PO SCH (20:22)
[2020-04-21 07:45] LABS: INR 1.3 (0.9-1.1)
[2020-04-21 08:03] LABS: BUN Creatinine Ratio 17.9 (10-20); Est GFR (African American) 99.3; Est GFR (Non-African American) 85.6; Potassium 3.5 mmol/L (3.5-5.1)
[2020-04-21] MEDS: ESCITALOPRAM OXALATE 10 MG TAB PO SCH (08:45)
[2020-04-21] MEDS: LACTATED RINGER'S 1,000 ML IV SCH ×3 (08:45→23:34)
[2020-04-21] MEDS: THIAMINE HCL 200 MG in SODIUM CHLORIDE 0.9% 50 ML IV SCH ×3 (08:50→21:18)
[2020-04-21] MEDS: NITROFURANTOIN MONOHYDRATE 100 MG CAP PO SCH (09:13)
--- NOTE | 2020-04-21 15:01 | Hospitalist Progress Note ---
Date of Service April 21, 2020 Assessment & Plan (1) Acute GI bleeding: Mrs. Sky is a 75 yo woman on chronic anticoagulation with coumadin who was admitted for evaluation of BRBPR in the setting of a supratherapeutic INR. Hemoglobin has stabilized, suggesting acute bleed has stopped. Patient refused endoscopy by GI. She is medically stable at this time for discharge - case management working to arrange placement. - patient with report of several episodes of BRBPR prior to admission - INR on admission was > 9.7, down to 1.2 with Vit K and Kcentra administration - coumadin on hold - patient is hemodynamically stable - Hgb stabilized at 9 - CT AP showing contrast extravasation in rectum, consistent with lower GI etiology - IV protonix d/c - GI consulted, patient refused scopes (2) Anemia: - Hgb has stabilized at 9 - MCV 100 - iron and ferritin normal, transferrin low, B12 and folate normal - patient is on home iron supplement - Type and screen performed - Blood consent signed - transfuse if hgb < 8 - no signs of active bleeding or acute blood loss on exam - etiology: suspect multifactorial in the setting of acute blood loss vs. iron deficiency vs. possibly megaloblastic vs. anemia of chronic disease (3) Supratherapeutic INR: - INR > 9.7 on admission, down to 1.2 with Vit K and Kcentra - patient is on chronic coumadin, although indication is unclear. No evidence of afib on monitor since admission. Ambiguous report of "blood clots in neck and brain" provided by daughter on admission. Daughter reports patient was started on it at [facility] - HIM records request ordered. - hold coumadin - trend (4) Hepatic encephalopathy: - family reports progressive cognitive decline over the the past 6 months, acutely worse over past week - while patient likely has underlying dementia, acute encephalopathy seems to be resolving - ammonia level elevated on admission to 73, down to 43 today - no evidence of cirrhosis on CT scan of abdomen; liver US showing a diffusely coarsened hepatic echotexture - patient would benefit from lactulose, however will hold in the setting of an acute GI bleed - Head CT negative on admission. WBC normal. Lactate has cleared. Electrolyte normal. Cr normal. Urine culture is positive for gram - bacilli, may be contributory. - delirium precautions (5) Ambulatory dysfunction: - patient with history of Etoh use - associated encephalopathy - no obvious oculomotors defects on exam - currently on IV thiamine with concerns for possible Wernicke encephalopathy - PT/OT (6) Cholelithiasis: - incidentally noted on liver US on 04/19 - associated minimally dilated CBD, measuring 7mm. - sonographic lanier's sign was negative - patient refused abdominal exam today, although clinically well appearing and without fevers - if patient reports increase in abdominal pain, will order dedicated gallbladder US (7) Abnormal urinalysis: - UA on admission showing > 30 WBCS, 1+ LE, 4+ bacteria. Neg Nitrites - Urine culture growing >100,000 colonies of proteus, sensitive to cephalexin - no report of urinary symptoms, however patient is altered - afebrile, WBC normal, no concern for upper tract involvement - transition from macrobid to keflex 250mg, QID for 7 days Dispo: Med/Surg Diet: heart healthy Code: DNR/DNI DVT ppx: INR supratherapeutic Admission and Anticipated Discharge Date Admission Date: April 18, 2020 Supervising Physician Co-Signing Physician Notes Patient seen and examined independently of PGY-1 Dr. Paulino. Agree with history, exam findings, assessment and plan of care as outlined: In brief, Ms. Sky is a 75 year old female with history of regular alcohol use, VTE (unknown location) anticoagulated with coumadin admitted with bright red blood per rectum. One small bowel movement with a clot today. Vital signs and nursing notes reviewed. On exam, well appearing, no acute distress. Labs and imaging reviewed. 1. anemia secondary to acute lower GI bleed caused by supratherapeutic INR. Hgb 9.1. No further major bleeding. 2. Supratherapeutic INR. On coumadin as an outpatient. Reversed with Vitamin K and KCentra. INR today 1.3. Holding coumadin. Obtaining prior records to determine why she is anticoagulated and if she should continue to be so. 3. Proteus growing in urine. Switched to Keflex. 4. Esophageal varices. see below for discussion of hepatic issue. 5. Elevated ammonia level (73?43) possible cause of increased confusion. No history of cirrhosis and liver texture on CT non-cirrhotic. RUQ ultrasound with coarse echotexture. 6. remote history of regular alcohol use. possible contribution to hepatic issue described above. Dispo: Needing 24 hour carereferral sent to [facility], but out of network with insurance. Family is looking into options for care at home. Subjective patient is conversant and pleasant on exam today. Her only discomfort is the hematoma at the IV site on the dorsal aspect of the R hand. She lives independently in an apartment in [place] - not with any relatives Review of Systems Review of Systems: All systems reviewed & are unremarkable except as noted in HPI & below Physical Exam Constitutional: WD/WN, vitals as above + altered mental status; no acute distress Eyes: + anicteric sclerae ENMT: external ear and nose normal, oropharynx normal Neck: normal visual inspection and trachea midline Respiratory: normal respiratory effort, lungs clear to auscultation no respiratory distress Auscultation: no crackles, no rales, no rhonchi and no wheezes Cardiovascular: RRR, no murmur, no edema Heart Sounds: normal S1 and normal S2 Extremities: no pedal edema Gastrointestinal (Abdomen): normal bowel sounds, soft, nontender, no hepatosplenomegaly Musculoskeletal: hematoma at prior IV site on dorsal aspect of R hand Skin: no rashes, warm and dry + scar (abdomen) Neurologic: moves all extremities and awake Motor/Sensory: no tremor and no asterixis Psychiatric: Orientation: alert, oriented to person and oriented to place; + not oriented to time (knew the year, not the month) Eye Contact: good eye contact Affect: euthymic affect Results & Data Results & Data ([facility]) Vital Signs (Past 12 Hours) Vital Signs Temp Pulse Resp BP BP Pulse Ox 04/21/20 11:59 36.9 C 79 18 152/74 H 96 04/21/20 07:26 36.9 C 69 16 120/66 97 04/21/20 04:00 36.9 C 69 18 129/69 96 Resident Activity Tracking Resident Involvement: Resident Care Provided Care Provided: Adult Hospital Medicine
[2020-04-21] MEDS: cephALEXin 250 MG CAP PO SCH ×2 (18:06→21:18)
[2020-04-22 07:07] LABS: INR 1.6 (0.9-1.1); Prothrombin Time 16.8 Seconds (9.0-12.0)
[2020-04-22 07:37] LABS: BUN Creatinine Ratio 10.8 (10-20); Calcium 7.9 mg/dl (8.5-10.1); Creatinine Clr Calc Pharmacy 66.1 ml/min; Est GFR (African American) 102.5; Est GFR (Non-African American) 88.4; Potassium 3.2 mmol/L (3.5-5.1)
[2020-04-22] MEDS: cephALEXin 250 MG CAP PO SCH ×4 (08:28→21:16)
[2020-04-22] MEDS: LACTATED RINGER'S 1,000 ML IV SCH (08:28)
[2020-04-22] MEDS: ESCITALOPRAM OXALATE 10 MG TAB PO SCH (08:28)
[2020-04-22] MEDS: PANTOprazole 40 MG TAB PO SCH ×2 (12:53→21:16)
--- NOTE | 2020-04-22 12:59 | Hospitalist Progress Note ---
Date of Service April 22, 2020 Assessment & Plan (1) Acute GI bleeding: Mrs. Sky is a 75 yo woman on coumadin who was admitted for evaluation of BRBPR in the setting of a supratherapeutic INR. Patient refused endoscopy by GI. Patient was started on Protonix, hemoglobin initially stabilized, but downtrended slightly again today. 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 She was directed to continue it for at least 3 months - however, she was not having her INR monitored by any medical provider in the interim. Patient likely has some underlying dementia (and questionable superimposed delirium) that necessitates 24 hour supervision. Prior to this hospitalization, Mrs. Sky was living independently in an apartment. Considering this is her 4th hospitalization in the past 10 months, self-sufficiency is not likely a viable option at this time. As of now, her daughter Shirlene (who lives in [place]) is planning on coming to stay with her mother in [place] to provide supervision. - patient with report of several episodes of BRBPR prior to admission, several during admission (melena + scant blood streaks) - INR on admission was > 9.7, down to 1.2 with Vit K and Kcentra administration on admission. At 1.6 now despite coumadin being held. Suspect persistent elevation in INR is secondary to intrinsic liver dysfunction - patient is hemodynamically stable - Hgb at 8.5, down from 9.1 yesterday. suspicious for ongoing GI bleed given report of stool by nursing today vs. dilutional (patient has been on IVF). We will discontinue IVF at this time and repeat level in am. - CT AP showing contrast extravasation in rectum, consistent with lower GI etiology - continue Protonix 40mg, PO BID - GI consulted, patient refused scopes (2) Anemia: - Hgb initially seemed to stabilize at 9; however down to 8.5 today. continue to trend - MCV 100 - iron and ferritin normal, transferrin low, B12 and folate normal - patient is on home iron supplement - Type and screen performed - Blood consent signed and in chart - transfuse if hgb < 7 - report of dark M with blood streaking today by nursing concerning for ongoing bleed - etiology: suspect multifactorial in the setting of acute blood loss vs. iron deficiency vs. possibly megaloblastic vs. anemia of chronic disease (3) Supratherapeutic INR: - INR > 9.7 on admission, down to 1.2 with Vit K and Kcentra. remains elevated at 1.6 today - suspect secondary to intrinsic liver dysfunction - after review of outside records, patient was started on Coumadin by Tristin Whitlock for a central venous sinus thrombosis on 10/11/19. Per review of records, neurology felt as though she would remain on Coumadin for at least 3 months, but did specify a firm end date. Given that Mrs. Sky has been on Coumadin for 7 months and is at risk for GI bleeds (and has an elevated INR secondary to intrinsic liver dysfunction) we recommend against restarting at this time. (4) Hepatic encephalopathy: - family reports progressive cognitive decline over the the past 6 months, acutely worse over past week - while patient likely has underlying dementia, acute encephalopathy seems to be resolving - ammonia level elevated on admission to 73, down to 43 - no evidence of cirrhosis on CT scan of abdomen; liver US showing a diffusely coarsened hepatic echotexture. persistently elevated INR suggestive of intrinsic liver dysfunction. - patient would benefit from lactulose in the future if ammonia increases in the setting of worsening cognitive status - Head CT negative on admission. WBC normal. Lactate has cleared. Electrolyte normal. Cr normal. Urine culture is positive for gram - bacilli, may be contributory. - delirium precautions (5) Ambulatory dysfunction: - patient with history of Etoh use - associated encephalopathy - no obvious oculomotors defects on exam - currently on IV thiamine with concerns for possible Wernicke encephalopathy - PT/OT recommending continued PT with home health services (6) Cholelithiasis: - incidentally noted on liver US on 04/19 - associated minimally dilated CBD, measuring 7mm. - sonographic lanier's sign was negative - patient refused abdominal exam today, although clinically well appearing and without fevers - if patient reports increase in abdominal pain, will order dedicated gallbladder US (7) Abnormal urinalysis: - UA on admission showing > 30 WBCS, 1+ LE, 4+ bacteria. Neg Nitrites - Urine culture growing >100,000 colonies of proteus, sensitive to cephalexin - no report of urinary symptoms, however patient is altered (although she may now be back to her baseline) - afebrile, WBC normal, no concern for upper tract involvement - transition from macrobid to keflex 250mg, QID for 7 days (currently on day 2) Dispo: Med/Surg Diet: heart healthy Code: DNR/DNI DVT ppx: INR supratherapeutic Admission and Anticipated Discharge Date Admission Date: April 18, 2020 Supervising Physician Co-Signing Physician Notes Patient seen and examined with PGY-1 Dr. Paulino. Agree with history, exam findings, assessment and plan of care as outlined: In brief, Ms. Sky is a 75 year old female with history of regular alcohol use, VTE (unknown location) anticoagulated with coumadin admitted with bright red blood per rectum. Had a soft, formed stool today. Vital signs and nursing notes reviewed. On exam, well appearing, no acute distress. Labs and imaging reviewed. 1. anemia secondary to acute lower GI bleed caused by supratherapeutic INR. Hgb 9.1?8.5. No further major bleeding. ?whether there is a component of an upper GI bleed as well with hgb drifting down. Restarted PPI. 2. history of central venous sinus thrombus. Has already completed 6 months of anticoagulation. No plans for resuming anticoagulation. 3. Supratherapeutic INR. On coumadin as an outpatient. Reversed with Vitamin K and KCentra. INR today 1.6. 3. Proteus growing in urine. Switched to Keflex. 4. Esophageal varices. see below for discussion of hepatic issue. 5. Elevated ammonia level (73?43). Resolved. No history of cirrhosis and liver texture on CT non-cirrhotic. RUQ ultrasound with coarse echotexture. 6. remote history of regular alcohol use. Possible contribution to hepatic issue described above. Dispo: Needing 24 hour [facility]ref[facility], but out of network with insurance. Family is looking into options for care at home. Patient has had several hospital admissions in the last year and is high risk for readmission. Dr. Paulino spoke with daughterreinforced that patient is not able to live independently. Subjective No acute events overnight - patient did have one dark BM today with light colored blood streaks (per nursing). Daughter Shirlene is planning to come pick her up from the hospital on Sunday and provide 24 hour care at her apartment. Review of Systems Gastrointestinal: + melena Physical Exam Constitutional: WD/WN, vitals as above + altered mental status; no acute distress Eyes: + anicteric sclerae ENMT: external ear and nose normal, oropharynx normal Neck: normal visual inspection and trachea midline Respiratory: normal respiratory effort, lungs clear to auscultation no respiratory distress Auscultation: no crackles, no rales, no rhonchi and no wheezes Cardiovascular: RRR, no murmur, no edema Heart Sounds: normal S1 and normal S2 Extremities: no pedal edema Gastrointestinal (Abdomen): normal bowel sounds, soft, nontender, no hepatosplenomegaly Skin: no rashes, warm and dry + scar (abdomen) Neurologic: moves all extremities and awake Motor/Sensory: no tremor and no asterixis Psychiatric: Orientation: alert and oriented to person; + not oriented to place (knew she was in a hospital, but did not know location) and + not oriented to time (knew the year, not the month) Eye Contact: good eye contact Affect: euthymic affect Results & Data Results & Data ([facility]) Vital Signs (Past 12 Hours) Vital Signs Temp Pulse Resp BP Pulse Ox 04/22/20 08:13 36.9 C 77 18 102/62 98 Resident Activity Tracking Resident Involvement: Resident Care Provided Care Provided: Adult Hospital Medicine
[2020-04-23 07:04] LABS: INR 1.7 (0.9-1.1)
--- NOTE | 2020-04-23 07:07 | Hospitalist Progress Note ---
Date of Service April 23, 2020 Assessment & Plan (1) Acute GI bleeding: Mrs. Sky is a 75 yo woman on coumadin who was admitted for evaluation of BRBPR in the setting of a supratherapeutic INR. Patient refused endoscopy by GI. Patient was started on Protonix, hemoglobin initially stabilized, downtrended slightly before increasing today. Suspect downtrend was dilutional. 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 She was directed to continue it for at least 3 months - however, she was not having her INR monitored by any medical provider in the interim. Patient likely has some underlying dementia (and questionable superimposed delirium) that necessitates 24 hour supervision. Prior to this hospitalization, Mrs. Sky was living independently in an apartment. Considering this is her 4th hospitalization in the past 10 months, self-sufficiency is not likely a viable option at this time. As of now, her daughter Shirlene (who lives in [place]) is planning on coming to stay with her mother in [place] to provide supervision. - patient with report of several episodes of BRBPR prior to admission, several during admission (melena + scant blood streaks) - INR on admission was > 9.7, down to 1.2 with Vit K and Kcentra administration on admission. At 1.7 now despite coumadin being held. Suspect persistent elevation in INR is secondary to intrinsic liver dysfunction - patient is hemodynamically stable - Hgb at 7.4 this am, down from 8.5 on 12. On re-check this afternoon, Hgb increased to 7.8. - CT AP showing contrast extravasation in rectum, consistent with lower GI etiology - continue Protonix 40mg, PO BID - GI consulted, patient refused scopes (2) Anemia: - Hgb initially stabilized at 9.1, before dropping to 8.5 and further to 7.4 today. Repeat level this afternoon 7.8. Suspect temporary drop due to dilution from IVF. - MCV 100 - iron and ferritin normal, transferrin low, B12 and folate normal - patient is on home iron supplement - Type and screen performed - Blood consent signed and in chart - transfuse if hgb < 7 - report of dark M with blood streaking today by nursing concerning for ongoing bleed - etiology: suspect multifactorial in the setting of acute blood loss vs. iron deficiency vs. possibly megaloblastic vs. anemia of chronic disease (3) Supratherapeutic INR: - INR > 9.7 on admission, down to 1.2 with Vit K and Kcentra. remains elevated at 1.6 today - suspect secondary to intrinsic liver dysfunction - after review of outside records, patient was started on Coumadin by Tristin Whitlock for a central venous sinus thrombosis on 10/11/19. Per review of records, neurology felt as though she would remain on Coumadin for at least 3 months, but did specify a firm end date. Given that Mrs. Sky has been on Coumadin for 7 months and is at risk for GI bleeds (and has an elevated INR secondary to intrinsic liver dysfunction) we recommend against restarting at this time. - 1.7 today (4) Hepatic encephalopathy: - family reports progressive cognitive decline over the the past 6 months, acutely worse over past week - while patient likely has underlying dementia, acute encephalopathy seems to be resolving - ammonia level elevated on admission to 73, down to 43 - no evidence of cirrhosis on CT scan of abdomen; liver US showing a diffusely c oarsened hepatic echotexture. persistently elevated INR suggestive of intrinsic liver dysfunction. - patient would benefit from lactulose in the future if ammonia increases in the setting of worsening cognitive status - Head CT negative on admission. WBC normal. Lactate has cleared. Electrolyte normal. Cr normal. UTI may be contributory. - delirium precautions (5) Ambulatory dysfunction: - patient with history of Etoh use - associated encephalopathy - no obvious oculomotors defects on exam - currently on IV thiamine with concerns for possible Wernicke encephalopathy - PT/OT recommending continued PT with home health services (6) Cholelithiasis: - incidentally noted on liver US on 04/19 - associated minimally dilated CBD, measuring 7mm. - sonographic lanier's sign was negative - patient refused abdominal exam today, although clinically well appearing and without fevers - if patient reports increase in abdominal pain, will order dedicated gallbladder US (7) Abnormal urinalysis: - UA on admission showing > 30 WBCS, 1+ LE, 4+ bacteria. Neg Nitrites - Urine culture growing >100,000 colonies of proteus, sensitive to cephalexin - no report of urinary symptoms, however patient is altered (although she may now be back to her baseline) - afebrile, WBC normal, no concern for upper tract involvement - transition from macrobid to keflex 250mg, QID for 7 days (currently on day 3) Dispo: Med/Surg Diet: heart healthy Code: DNR/DNI DVT ppx: INR supratherapeutic due to liver cirrhosis Admission and Anticipated Discharge Date Admission Date: April 18, 2020 Supervising Physician Co-Signing Physician Notes Attending attestation Pt seen and examined in concert with Dr. Paulino. In agreement with the documented findings as noted in the resident documentation with any exceptions or additions as noted here. 75 y/o female h/o etOH abuse, VTE on AC w/ coumadin w/ supratherapeutic INR Resting in bed reporting loose, light colored stools. On examination, S1/S2 nl RRR no MCG. CTAB. Abd NT/ND BS+ve Acute anemia 2/2 GIB (Lower?) with supratherapeutic INR s/p reversal with underlying coagulopathy - Continue PPI therapy. GI consultation with recall as patient reports willing to do bowel prep if Hgb decreases h/o central venous sinus thrombus - completed course of AC, do not restart Else see resident documentation as noted. Pending placement Subjective no acute events overnight. Patient is agreeable to a blood transfusion if necessary and a colonoscopy. She asks if her daughter is coming to pick her up today Review of Systems Gastrointestinal: + melena Physical Exam Constitutional: WD/WN, vitals as above no acute distress Eyes: + anicteric sclerae ENMT: external ear and nose normal, oropharynx normal Neck: normal visual inspection and trachea midline Respiratory: normal respiratory effort, lungs clear to auscultation no respiratory distress Auscultation: no crackles, no rales, no rhonchi and no wheezes Cardiovascular: RRR, no murmur, no edema Heart Sounds: normal S1 and normal S2 Extremities: no pedal edema Gastrointestinal (Abdomen): normal bowel sounds, soft, nontender, no hepatosplenomegaly Skin: no rashes, warm and dry + scar (abdomen) Neurologic: moves all extremities and awake Motor/Sensory: no tremor and no asterixis Psychiatric: Orientation: alert, oriented to person, oriented to place and jose ented to time Eye Contact: good eye contact Affect: euthymic affect Results & Data Results & Data ([facility]) Vital Signs (Past 12 Hours) Vital Signs Temp Pulse Resp BP Pulse Ox 04/23/20 03:15 36.5 C 76 18 111/61 93 04/22/20 23:02 36.5 C 86 18 119/71 97 Resident Activity Tracking Resident Involvement: Resident Care Provided Care Provided: Adult Hospital Medicine
[2020-04-23] MEDS: PANTOprazole 40 MG TAB PO SCH ×2 (08:52→20:14)
[2020-04-23] MEDS: cephALEXin 250 MG CAP PO SCH ×4 (08:52→20:14)
[2020-04-23] MEDS: ESCITALOPRAM OXALATE 10 MG TAB PO SCH (08:53)
[2020-04-24] MEDS: cephALEXin 250 MG CAP PO SCH ×3 (17:51→21:30)
[2020-04-24] MEDS ORDERED: ONDANSETRON 4 MG OD TAB PO PRN (18:22)
[2020-04-24] MEDS ORDERED: MELATONIN 3 MG TAB PO PRN (18:22)
[2020-04-24] MEDS: PANTOprazole 40 MG TAB PO SCH ×2 (21:10→21:31)
[2020-04-24] MEDS: ESCITALOPRAM OXALATE 10 MG TAB PO SCH (21:31)
--- NOTE | 2020-04-25 06:49 | Discharge Summary ---
Date of Service April 25, 2020 Admission HPI Per Admitting Provider Yen Sky is a 75 year old female who presents to the ER with rectal bleeding. History is taken from her daughter at bedside as patient unable to answer any questions and is not orientated x3 who has only recently become involved in her care over the last month. She reports two days of bright red blood and passing clots in stool. The patient has also had progressive decline with ambulatory dysfunction and combative behaviour since care has been taken over by her daughter at the end of last month. She reports acute on chronic decline since the patient was diagnosed with a "blood clot on the brain" in [facility] back in September. She was seen at [facility] for a headache twice in September but discharged from the ER both times. Her daughter reports she went to [facility] after these visits and subsequently life-flighted to [place] and then [place] for a blood clot on her brain for which she was treated with warfarin. Prior to this the patient had been living by herself in [place], [place] and was a chronic alcoholic. After likely withdrawing during her hospitalizations she was discharged to [facility] for rehabilitation. Given treatment with warfarin I suspect she had a stroke with possible atrial fibrillation although her daughter denies any knowledge of this. After rehabilitation she went to live with her sister in [place] but the patient was combative and they would argue all the time therefore her daughter from [place] picked her up and initially lived with her but quickly came back to [place] to live with her [facility]. Unfortunately she has continued to decline. She is yet to follow up with a PCP in [place] since moving back to at the end of February. She has actually had a PCP appointment this coming week as follow up with a repeat INR. Last INR was at the end of February but known In the ER Hgb 10.2 from prior baseline 14.9 ([address] concerning for esophageal varices but no hematemesis from history. Admission Exam Per Admitting Provider Constitutional: well developed and + frail appearing; + not well nourished and no acute distress Eyes: + anicteric sclerae; normal pupil size ENMT: Ears: no external ear abnormality Nose: no external nose abnormality Mouth: + dry oral mucous membranes Neck: trachea midline Respiratory: normal respiratory effort, lungs clear to auscultation Cardiovascular: RRR, no murmur, no edema Gastrointestinal (Abdomen): Inspection/Auscultation: abdomen normal to inspection and normal bowel sounds Percussion/Palpation: abdomen soft; abdomen nontender, no guarding and abdomen not rigid Musculoskeletal: no cyanosis or clubbing, extremities motor strength 5/5 Skin: no rashes, warm and dry Neurologic: moves all extremities, awake and + confused; no focal motor deficits (no one sided deficit, limited exam due to patient compliance) Psychiatric: Orientation: alert; + not oriented x 3 Eye Contact: + fair eye contact Genitourinary: no CVA tenderness Principal Diagnosis Bright Red Blood Per Rectum Discharge Exam Constitutional WD/WN, vitals as above no acute distress Eyes + anicteric sclerae ENMT external ear and nose normal, oropharynx normal Neck normal visual inspection and trachea midline Respiratory normal respiratory effort, lungs clear to auscultation no respiratory distress Auscultation: no crackles, no rales, no rhonchi and no wheezes Cardiovascular RRR, no murmur, no edema Heart Sounds: normal S1 and normal S2 Extremities: no pedal edema Gastrointestinal (Abdomen) normal bowel sounds, soft, nontender, no hepatosplenomegaly Skin no rashes, warm and dry + scar (abdomen) Neurologic moves all extremities and awake Motor/Sensory: no tremor and no asterixis Psychiatric Orientation: alert, oriented to person, oriented to place and oriented to time Eye Contact: good eye contact Affect: euthymic affect Discharge Data Allergies Allergy/AdvReac Type Severity Reaction Status Date / Time ibuprofen Allergy Intermediate HIVES Verified 04/18/20 11:47 (TOLERATES OTHER NSAIDS) Consultations 04/18/20 17:40 ED Decision to Admit Stat 04/18/20 20:08 Consult Health Information Management Routine 04/19/20 07:20 Consult Gastroenterology Routine 04/20/20 06:51 Consult Health Information Management Routine Procedures Performed Operation Date: 04/20/20 16:00 <No data on this case meets the specified criteria> Ordered Studies 04/18/20 12:14 CT abd pelvis IV con only Stat CT head/brain wo con Stat 04/19/20 14:30 US liver Routine Hospital Course (1) Acute GI bleeding: Mrs. Sky is a 75 yo woman on coumadin who was admitted for evaluation of BRBPR in the setting of a supratherapeutic INR. Patient refused to drink bowel prep and thus GI was unable to perform endoscopy. Her hemoglobin dropped from 10.1 to 7.4 during her hospital stay, but trended up by the time of discharge. Fortunately, she never required a blood transfusion. She was started on protonix 40mg, twice daily and her reports of dark stools with blood streaks resolved by the time of discharge. After review of outside records, patient was placed on Coumadin 10/11/2019 at [facility] for a central venous sinus thrombosis. She was directed to continue it for at least 3 months - however, she was not having her INR monitored by any medical provider in the interim. Patient likely has some underlying dementia that necessitates 24 hour supervision. Prior to this hospitalization, Mrs. Sky was living independently in an apartment. Considering this is her 4th hospitalization in the past 10 suns (at [facility] alone), self-sufficiency is not likely a viable option at this time. As of now, her daughter Shirlene (who lives in [place]) is planning on coming to stay with her mother for a period of 2 weeks time. Case management is working to arrange home health services and eventual placement for Mrs. Sky in a personal mcfp vs. memory unit at a SNF. Daughter Shirlene was made aware t hat this may take a period of months to arrange, thus there are concerns for inadequate supervision of Mrs. Sky after daughter leaves. - patient with report of several episodes of BRBPR prior to admission, several during admission witnessed by nursing (melena + scant blood streaks) - INR on admission was > 9.7, down to 1.2 with Vit K and Kcentra administration on admission. At 1.7 now despite coumadin being held. Suspect persistent elevation in INR is secondary to intrinsic liver dysfunction - patient is hemodynamically stable - Hgb dropped as low as 7.4 --> increased to 8.1 by the time of hospital discharge - CT AP showing contrast extravasation in rectum, consistent with lower GI etiology - continue Protonix 40mg, PO BID - GI consulted, patient refused scopes Outpatient items to do: Revisit scheduling a routine, screening colonoscopy. Recheck Hgb level at follow up visit. (2) Anemia: - Hgb dropped to 7.4 during hospital stay, increased to 8.1 by the time of discharge. - MCV 100 - iron and ferritin normal, transferrin low, B12 and folate normal - patient is on home iron supplement - report of dark M with blood streaking today by nursing concerning for ongoing bleed - etiology: suspect multifactorial in the setting of acute blood loss vs. iron deficiency vs. possibly megaloblastic vs. anemia of chronic disease (3) Supratherapeutic INR: - INR > 9.7 on admission, down to 1.2 with Vit K and Kcentra. remains elevated at 1.6 today - suspect secondary to intrinsic liver dysfunction - after review of outside records, patient was started on Coumadin by Tristin Whitlock for a central venous sinus thrombosis on 10/11/19. Per review of records, neurology felt as though she would remain on Coumadin for at least 3 months, but did specify a firm end date. Given that Mrs. Sky has been on Coumadin for 7 months and is at risk for GI bleeds (and has an elevated INR secondary to intrinsic liver dysfunction) we recommend against restarting at this time. - 1.7 by the time of discarge (4) Hepatic encephalopathy: - family reports progressive cognitive decline over the the past 6 months, acutely worse over past week - while patient likely has underlying dementia (possible related to Etoh use), acute encephalopathy resolved by the time of discharge - ammonia level elevated on admission to 73, down to 43 by time of discharge (correlated with acute encephalopathy resolution) - no evidence of cirrhosis on CT scan of abdomen; liver US showing a diffusely coarsened hepatic echotexture. persistently elevated INR suggestive of intrinsic liver dysfunction. - patient would benefit from lactulose in the future if ammonia increases in the setting of worsening cognitive status - Head CT negative on admission. WBC normal. Lactate has cleared. Electrolyte normal. Cr normal. UTI may be contributory. - patient recommend to live with 24 hr supervision (5) Ambulatory dysfunction: - patient with history of Etoh use - associated encephalopathy - no obvious oculomotors defects on exam - patient was treated with IV thiamine while hospitalized due to concerns for possible Wernicke encephalopathy - PT/OT recommending continued PT with home health services (6) Cholelithiasis: - incidentally noted on liver US on 04/19 - associated minimally dilated CBD, measuring 7mm. - sonographic lanier's sign was negative - patient refused abdominal exam today, although clinically well appearing and without fevers - if patient reports increase in abdominal pain, consider ordering a dedicated gallbladder US (7) Abnormal urinalysis: - UA on admission showing > 30 WBCS, 1+ LE, 4+ bacteria. Neg Nitrites - Urine culture growing >100,000 colonies of proteus, sensitive to cephalexin - no report of urinary symptoms, however patient is altered (although she may now be back to her baseline) - afebrile, WBC normal, no concern for upper tract involvement - transition from macrobid to keflex 250mg, QID for 7 days (currently on day 5). Patient was provided with script to complete course. Total Time Total Time Spent Total Time Spent (In Minutes): see attending attestation Discharge Plan Discharge Items Patient Disposition: Home - Home Health Services Reason For Visit: RECTAL BLEED,ESOPHAGEAL VARICES,SUPRATHERAPEUTIC I Discharge Diagnosis: rectal bleeding Activity: Resume your previous activity Non-emergency contact: Primary Care Provider Call non-emergency contact if: your symptoms worsen Follow-up/Referrals: Emma Cramer DO [Primary Care Provider] - Diet: Heart Healthy Addtl Attending Provider Instructions: You were hospitalized at [facility] for evaluation of bleeding from your rectum (dark colored stool is an indication that it contains blood). Gastroenterology (GI) was consulted and recommend you have a scope of both your upper and lower GI tracts (known as endoscopy) in an effort to locate the bleeding source, but you refused to drink the bowel prep necessary to have the procedure. The prep makes you have bowel movements - - this way the doctors can see the mejias of your colon without stool obscuring their views. As a result, the gastroenterology team was unable to perform the scopes. Fortunately, your hemoglobin (or oxygen carrying component of the red blood cell) began to increase by the time of discharge. This suggests your GI bleed slowed down or stopped. We still recommend you have a routine colonoscopy as an outpatient to screen for colon cancer, however, you will have to drink the bowel prep the night before. Please continue to take the medication "Protonix" 40 mg, twice daily. Protonix is an acid blocking agent that will treat both your heartburn and also help reduce the likelihood of future GI bleeds. You should STOP taking your blood thinner Coumadin - you were on Coumadin since Sep, 2019 when you had a clot in your brain. However, it was recommend you remain on Coumadin for 3-6 months - it has now been 7 months, so we recommend you discontinue it. Being on a blood thinner will make you more likely to have future GI bleeding. You were also found to have a urinary tract infection during your hospital stay. You were started on an antibiotic called "Keflex" to treat the infection. Please continue to take Keflex, 250mg, four times daily for the next 3 days. A prescription for the remaining pills was called into your preferred pharmacy. As an "FYI" you had a cat scan of your abdomen while in the hospital. It showed evidence of stones in your gallbladder. Although this was totally unrelated to your hospitalization, you be aware of this finding. Many people have stones in their gallbladder and are totally asymptomatic from them. However, there is chance that a stone could eventually get stuck in your common bile duct and cause intense pain in the upper right side of your abdomen. If this happens to you, you may end up needing to have your gallbladder surgically removed. But for now, we recommend no specific treatment. Please schedule a follow up appointment your primary care physician within 1 week of your discharge. Pending Studies at Discharge: No Stand-Alone Forms: My [facility], Smoking Cessation Medications and DC Order Prescriptions: New cephalexin 250 mg Capsule 250 mg PO QID 3 Days Qty: 10 RF: 0 pantoprazole 40 mg Tablet,Delayed Release (Dr/Ec) 40 mg PO BID 30 Days Qty: 60 RF: 0 escitalopram oxalate 5 mg tablet 5 mg PO QAM 30 Days Qty: 30 RF: 0 Continued multivitamin Tablet 1 tab PO QAM RF: 0 leflunomide 10 mg Tablet 10 mg PO QAM RF: 0 furosemide 20 mg tablet 20 mg PO BID PRN (Reason: Edema) RF: 0 potassium chloride [Klor-Con M10] 10 mEq tablet,ER particles/crystals 20 meq PO BID RF: 0 ferrous sulfate 27 mg iron Tablet 27 mg PO QAM RF: 0 Discontinued warfarin 3 mg tablet 6 mg PO QAM RF: 0 Discharge Orders: Discharge Order (Routine); Ordered 04/25/20 Ordered By: Shauna Lemus/Other Patient Handouts: Bleeding Gastrointestinal Admission Data Admit Date/Time: 04/18/20 16:18 Attending Provider: Jerry Mack Admit Provider: Tarun Dietrich Primary Care Provider: Emma Cramer Other Providers: Nehemias Padilla ; Randy, ; Tarun Dietrich ; Murtaza Zacarias [facility] Other Interventions: Discharge Summary Assessment (RN) Last Done: 04/25/20 11:10 Supervising Physician Co-Signing Physician Notes Attending attestation Pt seen and examined in concert with Dr. Paulino. In agreement with the documented findings as noted in the resident documentation with any exceptions or additions as noted here. 75 y/o female h/o etOH abuse, VTE on AC w/ coumadin w/ supratherapeutic INR Resting in bed without complaint. Tolerating POI well. Nl bowel movements per patient and nursing. On examination, S1/S2 nl RRR no MCG. CTAB. Abd NT/ND BS+ve Acute anemia 2/2 GIB (Lower?) with supratherapeutic INR s/p reversal with underlying coagulopathy - Continue PPI therapy. Strongly encourage outpatient follow up with GI for endoscopy/colonoscopy for evaluation especially in the setting of no h/o screening colonoscopy. Precautions reviewed re: melena/hematochezia, abdominal pain, need for routine follow up with PCP. Dementia - strong counseling provided regarding concern for patient's living situation. Though daughter is staying for support now, this is not a exterminator helper termite solution per her. Case management is aware and working through [facility]. h/o central venous sinus thrombus - completed course of AC, do not restart Else see resident documentation as noted. 35 minutes spent on this discharge including evaluation, management, education and coordination of care. Resident Activity Tracking Resident Involvement: Resident Care Provided Care Provided: Adult Hospital Medicine
[2020-04-25] MEDS: ESCITALOPRAM OXALATE 10 MG TAB PO SCH (08:50)
[2020-04-25] MEDS: cephALEXin 250 MG CAP PO SCH (08:50)
[2020-04-25] MEDS: PANTOprazole 40 MG TAB PO SCH (08:51)
== END 2020-04-25 11:52 | disposition home health service (06) | DRG 813 ==
LOC: ED 10:34 → SUATTDRO 16:18 → 2N 16:18 → 3N 04-23 03:14